=== PATIENT | female | born 1975 | race Caucasian/White ===

== ENCOUNTER 2016-12-17 11:18 | Day surgery (SDC) | payer OTHER ==
[2016-12-15 15:11] VITALS: BMI 24.5
[~2016-12-17 11:18] MED LIST: DEXAMETHASONE SOD PHOSPHATE 10 MG/ML 1 ML VIAL IV ONE; HYDROmorphone 1 MG/ML 1 ML SYRINGE IVP PRN; MIDAZOLAM 2 MG/2 ML VIAL IV PRN; ONDANSETRON 4 MG/2 ML VIAL IVP ONE; ceFAZolin 2 GM in SODIUM CHLORIDE 0.9% 100 ML IVPB ONE
[2016-12-17] MEDS ORDERED: LIDOCAINE 1% 20 ML VIAL (10MG/ML) FOR IV START INTRADERMA ONE (11:49)
[2016-12-17] MEDS: LACTATED RINGERS 1,000 ML IV SCH ×2 (11:49→14:41)
[2016-12-17] MEDS ORDERED: LIDOCAINE 1% INJ 10MG/ML (20 ML MDV) ONE (13:37)
[2016-12-17] MEDS ORDERED: MIDAZOLAM 2 MG/2 ML VIAL ONE (13:37)
[2016-12-17] MEDS ORDERED: fentaNYL (PF) 50 MCG/ML 2 ML AMP ONE (13:37)
[2016-12-17] MEDS ORDERED: PROPOFOL 10 MG/ML 20 ML VIAL IV ONE (13:37)
--- NOTE | 2016-12-17 14:09 | P.OP ---
Date of Procedure: 12/17/16 Preoperative Diagnosis: Bladder pressure rule out interstitial cystitis Postoperative Diagnosis: Interstitial cystitis Procedure(s) Performed: Cystoscopy with hydrodistention of bladder Anesthesia: MIGUEL Surgeon: John Blair Estimated Blood Loss (ml): 0 Pathology: none sent Condition: stable Disposition: PACU Indications for Procedure: The patient is a 41-year-old female with marked lower urinary tract symptoms, without infection. His symptoms are concerning for interstitial cystitis. She comes for cystoscopy and possible hydrodistention Description of Procedure: Patient brought to the operating suite and given general anesthesia. She's placed lithotomy position position with a sterile prep and drape urethra was intubated with a 22-Hungarian sheath and Foroblique lens. Urethra is normal. The bladder is markedly hyperemic and thickened consistent with nurse tissue cystitis. The bladder mucosa was otherwise unremarkable. There are no ulcers tumors or stones. Bladder filled with a good capacity of 950 mL however upon reentering the bladder there is marked submucosal petechiae throughout the floor the bladder and the trigone. There is terminal hematuria. The bladder capacity is refilled 2000 mL each time. Upon reentering the bladder there petechiae worsen. The bladder strain the cystoscope to remove the pelvic examinations unremarkable Impression a she has interstitial cystitis based on history and endoscopic findings. We will see how the hydrodistention helped her. She may need oral medication as well as intravesical instillations to help her.
[2016-12-17 14:21] VITALS: TEMP 97.2
[2016-12-17 14:24] VITALS: RESP 16
[2016-12-17] MEDS ORDERED: KETOROLAC 30 MG/ML 1 ML VIAL IVP ONE (14:47)
[2016-12-17 15:21] VITALS: BP 105/60; PULSE 74
== END 2016-12-17 15:46 | disposition home or self-care (01) ==
LOC: OR 11:18
PROVIDERS: ATTEND Urology
DX: N30.11 Interstitial cystitis (chronic) with hematuria (principal); I10 Essential (primary) hypertension; E78.00 Pure hypercholesterolemia, unspecified; K21.9 Gastro-esophageal reflux disease without esophagitis; F41.9 Anxiety disorder, unspecified; Z79.1 Long term (current) use of non-steroidal anti-inflammatories (NSAID); Z79.82 Long term (current) use of aspirin; Z79.899 Other long term (current) drug therapy; Z86.73 Personal history of transient ischemic attack (TIA), and cerebral infarction without residual deficits; Z78.0 Asymptomatic menopausal state
CPT/HCPCS: 81025; 52260; J2250; J1100; J0690; J2405; J2001; J3010; J1885; J2704

== ENCOUNTER → 2017-04-07 | Outpatient (CLI) | payer OTHER ==
--- NOTE | 2017-04-08 08:06 | XR ---
EXAMINATION TYPE: XR panorex DATE OF EXAM: 04/07/2017 COMPARISON: NONE HISTORY: Temporomandibular joint disorder TECHNIQUE: Single Panorex view is obtained FINDINGS: No acute fractures are evident. Temporal mandibular joints and normal orientation. Joint sp cirilo appears preserved. No suspicious osseous abnormality is evident. IMPRESSION: 1. Normal Panorex
== END | disposition home or self-care (01) ==
LOC: RADXRMAIN 14:24
PROVIDERS: ATTEND Dentist
DX: M26.609 Unspecified temporomandibular joint disorder, unspecified side (principal)
CPT/HCPCS: 70355

== ENCOUNTER → 2017-05-02 | Outpatient (CLI) | payer OTHER ==
[2017-05-02 11:25] LABS: Blood Urea Nitrogen 15 mg/dL (7-17); Non-African American GFR(MDRD) >60 (>60 ml/min/1.73 sqM)
== END | disposition home or self-care (01) ==
LOC: LABWHC1 10:18
PROVIDERS: ATTEND Psychiatry & Neurology Neurology
DX: R51 Headache (principal)
CPT/HCPCS: 36415; 82565; 84520

== ENCOUNTER → 2017-05-04 | Outpatient (CLI) | payer OTHER ==
--- NOTE | 2017-05-04 11:59 | MR ---
PRE AND POSTCONTRAST ENHANCED MRI OF THE BRAIN: CLINICAL HISTORY: Headache CONTRAST: 15 ML Multihance COMPARISON: 09/24/2013 Multiplanar and multispin-echo imaging of the brain was performed both before and after the administr ation of contrast. The ventricles, basal cisterns and sulci overlying the cerebral convexities are within normal limits. There is no evidence for midline shift or mass effect. Acute intracranial hemorrhage or extra-axial collection is not evident. There are no abnormal areas of increased or decreased signal intensity within the brain parenchyma. Following contrast administration, there is no evidence for pathologic enhancement or enhancing mass. The paranasal sinuses and mastoid air cells are well-aerated. Stable mucous retention cyst right maxi llary sinus. IMPRESSION: Unremarkable pre and postcontrast enhanced MRI of the brain.
== END | disposition home or self-care (01) ==
LOC: RADMRIMAIN 10:15
PROVIDERS: ATTEND Psychiatry & Neurology Neurology
DX: R51 Headache (principal)
CPT/HCPCS: 70553; A9577

== ENCOUNTER → 2017-08-06 | Outpatient (CLI) | payer OTHER ==
[2017-08-06 09:56] LABS: ALT 29 U/L (9-52); AST 32 U/L (14-36); Alkaline Phosphatase 73 U/L (38-126); Anion Gap 11 mmol/L; Blood Urea Nitrogen 9 mg/dL (7-17); Calcium 9.5 mg/dL (8.4-10.2); Carbon Dioxide 24 mmol/L (22-30); Chloride 102 mmol/L (98-107); Glucose 125 mg/dL (74-99); Non-African American GFR(MDRD) >60 (>60 ml/min/1.73 sqM); Potassium 4.4 mmol/L (3.5-5.1); Sodium 137 mmol/L (137-145); Total Bilirubin 0.7 mg/dL (0.2-1.3); Total Protein 7.5 g/dL (6.3-8.2)
[2017-08-06 10:02] LABS: Basophils % (A) 0 %; CH 30.7; CHCM 32.8; Eosinophils # (A) 0.3 k/uL (0-0.7); Eosinophils % (A) 4 %; HCT 39.5 % (34.0-46.0); HDW 2.38; Luc % (Auto) 1; Lymphocytes # (A) 1.4 k/uL (1.0-4.8); Lymphocytes % (A) 18 %; MCH 31.1 pg (25.0-35.0); MCV 94.1 fL (80.0-100.0); Mean Platelet Volume 7.9; Monocytes # (A) 0.3 k/uL (0-1.0); Monocytes % (A) 5 %; Neutrophils # (A) 5.3 k/uL (1.3-7.7); Neutrophils % (A) 72 %; RBC 4.19 m/uL (3.80-5.40); RDW 12.1 % (11.5-15.5); WBC 7.4 k/uL (3.8-10.6); WBC (Perox) 7.01
[2017-08-06 10:16] LABS: Appearance,Urine Clear (Clear); Bilirubin,Urine Negative (Negative); Glucose,Urine (UA) Negative (Negative); Ketones,Urine 1+ (Negative); Leukocyte Esterase,Urine Negative (Negative); Nitrite,Urine Negative (Negative); Protein,Urine Negative (Negative); Specific Gravity,Urine 1.007 (1.001-1.035); UA Billing (MACRO vs. MICRO) CHEM; Urobilinogen,Urine <2.0 mg/dL (<2.0)
--- NOTE | 2017-08-06 11:36 | XR ---
EXAMINATION TYPE: XR chest 2V DATE OF EXAM: 08/06/2017 COMPARISON: NONE INDICATION: Flulike symptoms cough 3-4 days TECHNIQUE: Frontal and lateral views of the chest are obtained. FINDINGS: The heart size is normal. The pulmonary vasculature is normal. The lungs are clear. IMPRESSION: 1. No acute pulmonary process.
== END | disposition home or self-care (01) ==
LOC: LABWHC1 09:13
PROVIDERS: ATTEND Family Medicine
DX: R68.89 Other general symptoms and signs (principal); I10 Essential (primary) hypertension; Z13.21 Encounter for screening for nutritional disorder
CPT/HCPCS: 36415; 71020; 80053; 81003; 82306; 84443; 85025

== ENCOUNTER → 2018-04-29 | Outpatient (CLI) | payer OTHER | END | disposition home or self-care (01) | LOC: LABWHC1 09:37 | PROVIDERS: ATTEND Family Medicine | DX: R23.2 Flushing (principal) | CPT/HCPCS: 36415; 83001 ==

== ENCOUNTER → 2018-10-27 | Outpatient (CLI) | payer OTHER ==
--- NOTE | 2018-10-30 10:19 | MM ---
Reason for exam: screening (asymptomatic). Last mammogram was performed 1 year and 1 month ago. History: Family history of breast cancer in maternal aunt. Took hormonal contraceptives for 4 years. MG Screening Mammo w CAD Bilateral CC and MLO view(s) were taken. XCCL view(s) were taken of the right breast. Prior study comparison: September 29, 2017, bilateral MG screening mammo w CAD. September 17, 2016, bilateral MG screening mammo w CAD. The breast tissue is heterogeneously dense. This may lower the sensitivity of mammography. There are benign-appearing round bilateral breast calcifications. No discrete abnormality. ASSESSMENT: Benign, BI-RAD 2 RECOMMENDATION: Routine screening mammogram of both breasts in 1 year.
== END | disposition home or self-care (01) ==
LOC: RADMAMWWP 09:10
PROVIDERS: ATTEND Family Medicine
DX: Z12.31 Encounter for screening mammogram for malignant neoplasm of breast (principal)
CPT/HCPCS: 77067

== ENCOUNTER 2019-08-29 08:55 | Observation (INO) | payer OTHER ==
[2019-08-29] MEDS ORDERED: SODIUM CHLORIDE 0.9% 500 ML 500 ML IV STA (09:11)
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
--- NOTE | 2019-08-29 10:00 | CT ---
EXAMINATION TYPE: CT brain wo con DATE OF EXAM: 08/29/2019 COMPARISON: August 20, 2013 HISTORY: Neuro Deficits CT DLP: 1068.[address] of the brain was performed. The ventricles, basal cisterns and sulci overlying the cerebral convexities demonstrate a normal appe arance. There is no evidence for intracranial hemorrhage or sulcal effacement. No mass effects are seen. Osseous calvarium is intact. If symptoms persist consider MRI as clinically warranted. IMPRESSION: 1. No acute intracranial process is seen at this time.
--- NOTE | 2019-08-29 10:02 | XR ---
EXAMINATION TYPE: XR chest 2V DATE OF EXAM: 08/29/2019 COMPARISON: 08/06/2017 HISTORY: Chest pain TECHNIQUE: Frontal and lateral views of the chest are obtained. FINDINGS: There is no focal air space opacity. No evidence for pneumothorax. No pleural effusion. The cardiac silhouette size is within normal limits. The osseous structures are grossly intact. IMPRESSION: 1. No acute cardiopulmonary process.
[2019-08-29 10:18] LABS: African American GFR (CKD) >90 (>60 ml/min/1.73 sqM); Anion Gap 16 mmol/L; Blood Urea Nitrogen 14 mg/dL (7-17); Calcium 9.3 mg/dL (8.4-10.2); Carbon Dioxide 15 mmol/L (22-30); Chloride 106 mmol/L (98-107); Glucose 97 mg/dL (74-99); Sodium 137 mmol/L (137-145)
[2019-08-29 10:22] LABS: Basophils % (A) 1 %; Eosinophils % (A) 1 %; HCT 39.9 % (34.0-46.0); HGB 13.5 gm/dL (11.4-16.0); Lymphocytes % (A) 29 %; MCH 31.2 pg (25.0-35.0); MCHC 33.7 g/dL (31.0-37.0); MCV 92.5 fL (80.0-100.0); Mean Platelet Volume 7.2; Monocytes # (A) 0.2 k/uL (0-1.0); Monocytes % (A) 6 %; Neutrophils # (A) 2.2 k/uL (1.3-7.7); Neutrophils % (A) 61 %; Platelet Count 217 k/uL (150-450); RBC 4.32 m/uL (3.80-5.40); RDW 13.3 % (11.5-15.5); WBC 3.5 k/uL (3.8-10.6)
[2019-08-29 10:24] LABS: Prothrombin Time 10.3 sec (9.0-12.0)
[2019-08-29 10:30] LABS: AST 49 U/L (14-36); Potassium 5.3 mmol/L (3.5-5.1); Total Bilirubin 1.2 mg/dL (0.2-1.3); Total Protein 8.5 g/dL (6.3-8.2)
[2019-08-29 10:31] LABS: ALT <6 U/L (9-52); Alkaline Phosphatase 77 U/L (38-126)
[2019-08-29 10:38] LABS: Partial Thromboplastin Time 21.1 sec (22.0-30.0)
[2019-08-29 10:45] LABS: Poikilocytosis (M) Present
[2019-08-29] MEDS ORDERED: ACETAMINOPHEN TAB 325 MG TAB PO STA (11:37)
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
[2019-08-29] MEDS ORDERED: INFLUENZA VACCINE (6 MOS+) 60 MCG/0.5 ML SYRINGE IM ONE (12:48)
--- NOTE | 2019-08-29 14:37 | P.CNNES ---
History of Present Illness Consult date: 08/29/19 Requesting physician: Kiran Moore Reason for Consult: TIA History of Present Illness: Patient is a 44-year-old female who came to the hospital for an acute episode of TIA versus focal seizure at around 8 AM this morning. Patient states that she was driving to work, and she was texting carefully when suddenly her right arm developed choreoathetoid movement, and has no control. She could not use the cell phone with her right hand at that time. Patient states that she remembers driving, and listing to the music, but she could not get to move her right arm what she wanted to do. She became panicked, and bending forwards and doing so, probably placed the gears in in the, and the car came to stop on the side of the road. She remembers people around, trying to knock on the window, but she could not unlock or open the door with the right arm. It felt weak, had no control. Patient states that she could hear people, but could not talk. This whole episode lasted for 2-3 minutes until she realized and used her left hand to open the lock and people opened the door. Paramedics came. Patient states when they arrived, she could not get up by herself, and she required prompt from the paramedics to get into the stretcher.patient arrived to the ER at 8:55 AM. Patient underwent computed tomography scan of the head, which revealed no acute process. EKG shows sinus tachycardia with nonspecific T-wave abnormality. Chest x-ray was normal. Labs were reviewed. Patient states that when she arrived to the hospital, she had one more event while in the ER, when she had this feeling coming on, and then her right arm developed choreoathetoid movement, not under control, weakness. It again lasted for just a few minutes, around 2-3. One of the physician in the ER came over and saw her and felt she was just hyperventilating, although patient states that it was way more than just hyperventilation. patient states that she had a similar episode 4 years ago when she was at her home with her son. Her son is nonverbal, with severe autism. Patient remembers being on one side of the room and woke up on the other side. She had similar episode of right arm clonic movement and weakness, blurred vision after she came to. She saw a neurologist, but uncertain what tests were performed. Patient did have an MRI of the brain with and without contrast on 05/04/2017 performed for "headache", which was normal. her previous B12 level was normal 751 on 04/17/2015. Total cholesterol 191, LDL 124. Patient takes aspirin 81 mg daily at home. She states that she is fully compliant and did not miss doses of aspirin lately. Review of Systems As above in detail. At present patient denies any focal symptoms. Denies any chest pain shortness of breath wheezing or cough. Constitutional: Reports weakness, Denies fever Eyes: bilateral blurred vision (With this episode.) Cardiovascular: Denies dyspnea on exertion Respiratory: Denies cough Past Medical History Past Medical History: GERD/Reflux, Hyperlipidemia, Hypertension Additional Past Medical History / Comment(s): HX. ? TIA 08/2013- HAD RT SIDE PAR ALYZIED FOR ABOUT 10 MINUTES, varicose veins, "small hernia", IBS, INTERSTITIAL CYSTITIS History of Any Multi-Drug Resistant Organisms: None Reported Past Surgical History: Cholecystectomy, Orthopedic Surgery, Uterine Ablation Additional Past Surgical History / Comment(s): HX. EGD/COLONOSCOPY 11/16/2009, novasure procedure, CYSTOSCOPY, LAPAROSCOPIC LT HIP SX Past Anesthesia/Blood Transfusion Reactions: No Reported Reaction Smoking Status: Never smoker - Past Family History Father Family Medical History: Cancer Additional Family Medical History / Comment(s): Father has prostate cancer that is in remission. Mother Family Medical History: Cancer Additional Family Medical History / Comment(s): Mother from liver cancer. She was manic depressive. Sister(s) Family Medical History: Deep Vein Thrombosis (DVT) Medications and Allergies Home Medications Medication Instructions Recorded Confirmed Type Aspirin 81 mg PO DAILY 04/06/14 08/29/19 History Metoprolol Tartrate [Lopressor] 50 mg PO DAILY 04/06/14 08/29/19 History Atorvastatin Calcium [Lipitor] 20 mg PO DAILY 12/15/16 08/29/19 History DULoxetine HCL [Cymbalta] 30 mg PO DAILY 04/11/19 08/29/19 History Omeprazole [PriLOSEC] 20 mg PO DAILY 08/29/19 08/29/19 History Tolterodine Tartrate [Detrol LA] 4 mg PO DAILY 08/29/19 08/29/19 History Allergies Allergy/AdvReac Type Severity Reaction Status Date / Time No Known Allergies Allergy Verified 04/12/19 10:55 Physical Examination - Vital Signs Vital Signs: Vital Signs Temp Pulse Resp BP Pulse Ox 08/29/19 11:36 98 16 120/75 99 08/29/19 10:10 109 H 16 117/84 100 08/29/19 08:56 98.2 F 117 H 16 121/84 100 Intake and Output 08/28/19 08/29/19 08/29/19 22:59 06:59 14:59 Other: Weight 59.874 kg On examination patient is a middle aged female, in no distress. Patient is alert and awake fully oriented. Her speech and language functions are normal. Attention and concentration fund of knowledge is adequate. On cranial nerve examination pupils are round and reactive to light, visual ruelas are full, face is symmetric and tongue protrudes to the midline. Palatal elevation and sensation normal. On muscle strength testing there is no mild right upward pronation, but no drift and the strength is normal in arms and legs distally and proximally. No ataxia. Tone and bulk of muscles normal. Results - Laboratory Findings CBC and BMP: 08/29/19 09:32 08/29/19 09:32 Abnormal Lab Findings: Abnormal Labs 08/29/19 08/29/19 08/29/19 09:32 09:32 09:32 WBC 3.5 L APTT 21.1 L Potassium 5.3 H Carbon Dioxide 15 L AST 49 H ALT <6 L Total Protein 8.5 H Assessment and Plan Assessment: * 44-year-old female presenting with two brief episodes of involuntary movement of the right arm, associated with right arm weakness and numbness, and inability to talk, all lasting for 1-2 minutes. Rule out TIA in the left parietal distribution versus focal seizure. Patient had a similar episode 4 years ago (total 3 episodes so far). * Hyperlipidemia Plan: * Patient will undergo workup for possible TIA /focal seizure. * We will check an EEG to rule out epileptiform activity, MRI of the brain to rule out mass or CVA. * We will check carotid Doppler to rule out carotid stenosis and a 2-D echo with bubble study to rule out PFO. * Patient will be continued on aspirin 325 mg daily. * Further management will be based upon above test results. * Patient is complaining of some headache, therefore we will start Fioricet as needed.
[2019-08-29] MEDS: BUTALB/APAP/CAFF 50-325-40MG TAB PO PRN ×2 (15:22→21:04)
[2019-08-29] MEDS ORDERED: ALPRAZolam 0.5 MG TAB PO PRN (16:52)
--- NOTE | 2019-08-29 17:38 | EEG ---
ELECTROENCEPHALOGRAM REPORT DATE OF SERVICE: 08/29/2019. PREAMBLE: This is a 44-year-old female who was admitted for an episode of involuntary movement of her right arm, with some mental status change and difficulty speaking. This is her third similar spell. Rule out focal seizure versus TIA. EEG FINDINGS: A STAT 21-channel awake digital EEG recording was accomplished utilizing the 10/20 international system with bipolar and referential montages. The background consists of well developed, well regulated, moderate to high amplitude activity in 10 Hz alpha. Background is posterior-dominant and reactive to eye opening and closing. Photic driving response was seen at some flash frequencies. Hyperventilation was not performed. Different stages of sleep were not seen. No focal or generalized epileptiform activity was seen. EKG rhythm leads revealed no obvious arrhythmia. IMPRESSION: This is a normal awake EEG. No focal, lateralized or epileptiform activity was seen. A normal EEG does not rule out epilepsy. If your suspicion for seizures is high, consider prolonged or sleep-deprived EEG. MMODL / IJN: [id number] / MTDChandler
--- NOTE | 2019-08-29 17:39 | MR ---
EXAMINATION TYPE: MR brain wo/w con DATE OF EXAM: 08/29/2019 COMPARISON: 05/04/2017 HISTORY: TIA/CVA versus seizure, Headache TECHNIQUE: Multiplanar, multisequence images of the brain and brainstem is performed without and with IV contras t, utilizing 6 mL intravenous Gadavist . FINDINGS: Ventricles have normal size. There is no mass effect nor midline shift. There is no sign of intracranial hemorrhage. There is no evidence of cerebral edema. There are a few tiny high signal fo ci in the white matter both parietal lobes that measure up to 4 mm. Total number is approximately 5. The brainstem is intact. There is no evidence of a cortical infarct. The sella turcica appears normal . Corpus callosum appears normal. There is 1.5 cm mucous retention cyst right maxillary sinus. Contrast images show no pathologic enhancement. There is normal contrast opacification of the venous sinuses. IMPRESSION: Mucous retention cyst right maxillary sinus unchanged. Scattered few small white matter h igh signal foci as above of uncertain significance. These appear mostly new compared to last exam. No evidence of cortical infarct.
[2019-08-29 18:14] LABS: HCT 36.9 % (34.0-46.0); HGB 12.4 gm/dL (11.4-16.0); MCH 30.7 pg (25.0-35.0); MCHC 33.5 g/dL (31.0-37.0); MCV 91.7 fL (80.0-100.0); Mean Platelet Volume 6.9; Platelet Count 249 k/uL (150-450); RBC 4.03 m/uL (3.80-5.40); RDW 13.2 % (11.5-15.5); WBC 8.5 k/uL (3.8-10.6)
--- NOTE | 2019-08-29 18:17 | US ---
EXAMINATION TYPE: US carotid duplex BILAT DATE OF EXAM: 08/29/2019 COMPARISON: NONE CLINICAL HISTORY: TIA. Right side numbness EXAM MEASUREMENTS: RIGHT: Peak Systolic Velocity (PSV) cm/sec ----- Right CCA: 106.0 ----- Right ICA: 111.0 ----- Right ECA: 125.0 ICA/CCA ratio: 1.0 RIGHT: End Diastole cm/sec ----- Right CCA: 38.1 ----- Right ICA: 55.5 ----- Right ECA: 25.8 LEFT: Peak Systolic Velocity (PSV) cm/sec ----- Left CCA: 104.0 ----- Left ICA: 103.0 ----- Left ECA: 122.0 ICA/CCA ratio: 1.0 LEFT: End Diastole cm/sec ----- Left CCA: 26.4 ----- Left ICA: 40.2 ----- Left ECA: 18.3 VERTEBRALS (direction of flow): Right Vertebral: Antegrade Left Vertebral: Antegrade Rhythm: Normal No elevated velocities or significant stenosis. No plaque. Thickened wall seen at left bulb. IMPRESSION: Minimal changes. The images and measurements suggest less than 10% stenosis in both inte rnal carotid arteries. There is antegrade flow in the vertebral arteries. Criteria for Assigning % of Stenosis / Diameter reduction (Estimation based on the indirect measurements of the internal carotid artery velocities (ICA PSV). 1. Normal (no stenosis)=ICA PSV < 125 cm/s: ratio < 2.0: ICA EDV<40 cm/s. 2. Less than 50% stenosis=ICA PSV < 125 cm/s: ratio < 2.0: ICA EDV<40 cm/s. 3. 50 to 69% stenosis=ICA PSV of 125 to 230 cm/s: ration 2.0 ? 4.0: ICA EDV 40-100 cm/s. 4. Greater than 70% stenosis to near occlusion= ICA PSV > 230 cm/s: ratio > 4.0: ICA EDV > 100 cm/s. 5. Near occlusion= ICA PSV velocities may be low or undetectable: variable ratio and ICA EDV. 6. Total occlusion=unable to detect flow.
[2019-08-29 18:21] LABS: ALT 22 U/L (9-52); AST 34 U/L (14-36); African American GFR (CKD) >90 (>60 ml/min/1.73 sqM); Albumin 4.2 g/dL (3.5-5.0); Alkaline Phosphatase 69 U/L (38-126); Anion Gap 8 mmol/L; Blood Urea Nitrogen 8 mg/dL (7-17); Calcium 9.1 mg/dL (8.4-10.2); Carbon Dioxide 25 mmol/L (22-30); Chloride 105 mmol/L (98-107); Glucose 83 mg/dL (74-99); Potassium 4.1 mmol/L (3.5-5.1); Sodium 138 mmol/L (137-145); Total Bilirubin 0.5 mg/dL (0.2-1.3)
[2019-08-29] MEDS ORDERED: traMADol 50 MG TAB PO PRN (18:30)
[2019-08-29] MEDS: FAMOTIDINE 20 MG/2 ML VIAL IV SCH (21:04)
[2019-08-29] MEDS: HEPARIN SODIUM,PORCINE 5,000 UNIT/ML 1 ML VIAL SQ SCH (21:04)
[2019-08-30 06:23] LABS: Basophils # (A) 0.1 k/uL (0-0.2); Basophils % (A) 1 %; Eosinophils # (A) 0.1 k/uL (0-0.7); Eosinophils % (A) 2 %; HCT 38.6 % (34.0-46.0); HGB 12.7 gm/dL (11.4-16.0); Lymphocytes # (A) 1.3 k/uL (1.0-4.8); Lymphocytes % (A) 30 %; MCH 30.4 pg (25.0-35.0); MCHC 32.9 g/dL (31.0-37.0); MCV 92.3 fL (80.0-100.0); Mean Platelet Volume 6.8; Monocytes # (A) 0.3 k/uL (0-1.0); Monocytes % (A) 6 %; Neutrophils # (A) 2.6 k/uL (1.3-7.7); Neutrophils % (A) 58 %; Platelet Count 254 k/uL (150-450); RBC 4.18 m/uL (3.80-5.40); RDW 13.2 % (11.5-15.5); WBC 4.4 k/uL (3.8-10.6)
[2019-08-30 06:32] LABS: African American GFR (CKD) >90 (>60 ml/min/1.73 sqM); Anion Gap 7 mmol/L; Blood Urea Nitrogen 8 mg/dL (7-17); Calcium 9.4 mg/dL (8.4-10.2); Carbon Dioxide 26 mmol/L (22-30); Chloride 104 mmol/L (98-107); Cholesterol 208 mg/dL (<200); Glucose 83 mg/dL (74-99); HDL Cholesterol 65 mg/dL (40-60); LDL Cholesterol,Calculated 130 mg/dL (0-99); Potassium 4.1 mmol/L (3.5-5.1); Sodium 137 mmol/L (137-145); Triglycerides 67 mg/dL (<150)
[2019-08-30] MEDS: HEPARIN SODIUM,PORCINE 5,000 UNIT/ML 1 ML VIAL SQ SCH (08:13)
[2019-08-30] MEDS: FAMOTIDINE 20 MG/2 ML VIAL IV SCH (08:13)
[2019-08-30 08:27] VITALS: RESP 16
[2019-08-30] MEDS ORDERED: ATORVASTATIN 20 MG TAB PO SCH (09:00)
[2019-08-30] MEDS ORDERED: OXYBUTYNIN 10 MG TAB.ER.24 PO SCH (09:00)
[2019-08-30] MEDS ORDERED: DULoxetine HCL 30 MG CAPSULE.DR PO SCH (09:00)
[2019-08-30] MEDS ORDERED: METOPROLOL TARTRATE 50 MG TAB PO SCH (09:00)
[2019-08-30] MEDS: BUTALB/APAP/CAFF 50-325-40MG TAB PO PRN (09:38)
[2019-08-30 11:39] VITALS: BP 116/68; PULSE 89; TEMP 97.8
[2019-08-30] MEDS ORDERED: levETIRAcetam 250 MG TAB PO SCH (11:45)
--- NOTE | 2019-08-30 11:51 | P.PN ---
Subjective Progress Note Date: 08/30/19 Patient denies any new neurological symptoms. She feels fine. Objective - Vital Signs Vital signs: Vital Signs Temp 97.8 F 08/30/19 11:39 Pulse 89 08/30/19 11:39 Resp 16 08/30/19 11:39 BP 116/68 08/30/19 11:39 Pulse Ox 100 08/30/19 11:39 Intake & Output 08/29/19 08/30/19 08/30/19 18:59 06:59 18:59 Intake Total 240 240 Output Total 550 Balance 240 -310 Weight 59.874 kg 60 kg Intake: Oral 240 240 Output: Urine 550 Other: Voiding Method Toilet Toilet # Voids 1 1 - Exam Normal. Nonfocal. - Labs CBC & Chem 7: 08/30/19 05:42 08/30/19 05:42 Labs: Abnormal Lab Results - Last 24 Hours (Table) 08/30/19 Range/Units 05:42 Cholesterol 208 H (<200) mg/dL LDL Cholesterol, Calc 130 H (0-99) mg/dL HDL Cholesterol 65 H (40-60) mg/dL Assessment and Plan Assessment: * 44-year-old female presenting with two brief episodes of involuntary movement of the right arm, associated with right arm weakness and numbness, and inability to talk, all lasting for 1-2 minutes. Rule out TIA in the left pa rietal distribution versus focal seizure. Patient had a similar episode 4 years ago (total 3 episodes so far). * Hyperlipidemia Plan: * EEG was normal awake pattern. * MRI of the brain negative for ischemia. Some small vessel disease. * Carotid Doppler negative for any carotid stenosis * 2-D echo with bubble study to rule out PFO has been completed. It revealed EF 55%. Bubble study showed no definitive [id number]-hlqu shunt. Left atrial size, right atrial size are normal. * Patient was taking aspirin 81 mg daily at home. She was recommended to take aspirin 81 mg, 2 tablets daily. * Patient's lipid panel showed cholesterol 208, LDL 130, HDL 35, triglycerides 67. Patient was taking Lipitor 20 mg every other day at home. Patient was recommended to start taking Lipitor 20 mg daily. * As patient had 3 stereotypical spells, suggestive of possible focal/simple partial seizure, we will empirically start her on Keppra 250 mg twice a day. Patient will follow up with Dr. Alistair Chawla, her neurologist as outpatient for possible prolonged EEG. * TSH is normal, B12 471 normal. * Patient clear for discharge.
--- NOTE | 2019-08-30 11:58 | ECHOF ---
Referral Reason:possible TIA, rule out PFO MEASUREMENTS -------- HEIGHT: 157.5 cm WEIGHT: 59.9 kg BP: IVSd: 0.8 cm (0.6 - 1.1) LVIDd: 3.7 cm (3.9 - 5.3) LVPWd: 1.2 cm (0.6 - 1.1) IVSs: 1.3 cm LVIDs: 2.5 cm LVPWs: 1.4 cm LA Diam: 2.6 cm (2.7 - 3.8) EPSS: 1.7 cm MV E Alexis: 0.54 m/s MV DecT: 254 ms MV A Alexis: 0.76 m/s MV E/A Ratio: 0.72 RAP: 5.00 mmHg RVSP: 15.92 mmHg MV EF SLOPE: 105.32 mm/s (70 - 150) MV EXCURSION: 20.65 mm (> 18.000) FINDINGS -------- Sinus rhythm. This was a technically good study. LV size, wall thickness and systolic function are normal, with an EF greater than 55%. The left mely tricular size is normal. The right ventricle is normal in size. The left atrial size is normal. The right atrial size is normal. The aortic valve is trileaflet, and appears structurally normal. No aortic stenosis or regurgitation. Mild mitral regurgitation is present. Mild tricuspid regurgitation present. Right ventricular systolic pressure is normal at < 35 mmHg. There is no evidence of pulmonary hypertension. There is no pulmonic regurgitation present. The aortic root size is normal. There is no pericardial effusion. NO CLEARCUT RIGHT TO LEFT SHUNT, TDS, SUBCOSTAL VIEW ONLY CONCLUSIONS -------- 1. Sinus rhythm. 2. This was a technically good study. 3. LV size, wall thickness and systolic function are normal, with an EF greater than 55%. 4. The left ventricular size is normal. 5. The right ventricle is normal in size. 6. The left atrial size is normal. 7. The right atrial size is normal. 8. The aortic valve is trileaflet, and appears structurally normal. No aortic stenosis or regurgitati on. 9. Mild mitral regurgitation is present. 10. Mild tricuspid regurgitation present. 11. Right ventricular systolic pressure is normal at < 35 mmHg. 12. There is no evidence of pulmonary hypertension. 13. There is no pulmonic regurgitation present. 14. The aortic root size is normal. 15. There is no pericardial effusion. 16. Bubble Study To Rule Any Shunts. GARLAND MAKER: Abigail Oneal RDCS
[2019-08-30] MEDS ORDERED: ASPIRIN 325 MG TAB PO SCH (12:00)
== END 2019-08-30 13:50 | disposition home or self-care (01) ==
LOC: EC 08:55 → 3SCARD 12:02
PROVIDERS: ADMIT Internal Medicine; ATTEND Internal Medicine
DX: R53.1 Weakness (principal); R47.81 Slurred speech; R20.2 Paresthesia of skin; R25.9 Unspecified abnormal involuntary movements; R51 Headache; F41.9 Anxiety disorder, unspecified; R06.4 Hyperventilation; D72.819 Decreased white blood cell count, unspecified; R00.0 Tachycardia, unspecified; I10 Essential (primary) hypertension; E78.5 Hyperlipidemia, unspecified; K21.9 Gastro-esophageal reflux disease without esophagitis; G62.9 Polyneuropathy, unspecified; N30.10 Interstitial cystitis (chronic) without hematuria; K58.9 Irritable bowel syndrome, unspecified; Z86.73 Personal history of transient ischemic attack (TIA), and cerebral infarction without residual deficits; Z28.21 Immunization not carried out because of patient refusal; Z79.82 Long term (current) use of aspirin; Z79.899 Other long term (current) drug therapy; Z90.49 Acquired absence of other specified parts of digestive tract; Z98.890 Other specified postprocedural states; Z82.49 Family history of ischemic heart disease and other diseases of the circulatory system; Z80.0 Family history of malignant neoplasm of digestive organs; Z80.42 Family history of malignant neoplasm of prostate
CPT/HCPCS: 96376; 96372 ×2; 96374; 96361; 99285; 36415; 95816; 93005; 93306; 97165; 92523; 80061; 80053; 80048; 84443; 82607; 84484; 85025 ×2; 85027; 85610; 85730; 71046; 93880; 70450; 70553; G0378 ×2; J1644 ×2; A9585

== ENCOUNTER → 2019-10-14 | Outpatient (CLI) | payer OTHER ==
[2019-10-14 15:40] LABS: Basophils % (A) 1 %; Eosinophils # (A) 0.1 k/uL (0-0.7); Eosinophils % (A) 1 %; HCT 38.3 % (34.0-46.0); HGB 12.7 gm/dL (11.4-16.0); Lymphocytes # (A) 1.7 k/uL (1.0-4.8); Lymphocytes % (A) 31 %; MCH 30.3 pg (25.0-35.0); MCHC 33.1 g/dL (31.0-37.0); MCV 91.6 fL (80.0-100.0); Mean Platelet Volume 8.5; Monocytes # (A) 0.2 k/uL (0-1.0); Monocytes % (A) 4 %; Neutrophils # (A) 3.4 k/uL (1.3-7.7); Neutrophils % (A) 62 %; Platelet Count 212 k/uL (150-450); RBC 4.18 m/uL (3.80-5.40); RDW 12.6 % (11.5-15.5); WBC 5.5 k/uL (3.8-10.6)
[2019-10-14 17:52] LABS: Erythrocyte Sedimentation Rate 15 mm/hr (0-20)
[2019-10-14 23:19] LABS: African American GFR (CKD) 121.3 (60.0-200.0); Albumin 4.6 g/dL (3.80-4.90); Albumin/Globulin Ratio 2.3 (1.60-3.17); Anion Gap 5.7 mmol/L (4.00-12.00); BUN/Creat Ratio 21.43 Ratio (12.00-20.00); Calcium 9.4 mg/dL (8.7-10.3); Carbon Dioxide 28.3 mmol/L (21.6-31.8); Non-African American GFR(CKD) 104.6 (60.0-200.0); Phosphorus 3.2 mg/dL (2.4-5.1); Total Bilirubin 0.5 mg/dL (0.3-1.2); Total Protein 6.6 g/dL (6.2-8.2)
== END | disposition home or self-care (01) ==
LOC: LABWHC1 15:03
PROVIDERS: ATTEND Family Medicine
DX: Z01.812 Encounter for preprocedural laboratory examination (principal); G40.89 Other seizures; G47.00 Insomnia, unspecified; E83.42 Hypomagnesemia
CPT/HCPCS: 36415; 80053; 80177; 83735; 84100; 85025; 85652

== ENCOUNTER → 2019-11-04 | Outpatient (CLI) | payer OTHER ==
--- NOTE | 2019-11-07 09:42 | MM ---
Reason for exam: screening (asymptomatic). Last mammogram was performed 1 year ago. History: Family history of breast cancer in maternal aunt. Took hormonal contraceptives for 4 years. Physical Findings: A clinical breast exam by your physician is recommended on an annual basis and results should be correlated with mammographic findings. MG Screening Mammo w CAD Bilateral CC and MLO view(s) were taken. XCCL view(s) were taken of the right breast. Prior study comparison: October 27, 2018, bilateral MG screening mammo w CAD. September 29, 2017, bilateral MG screening mammo w CAD. The breast tissue is heterogeneously dense. This may lower the sensitivity of mammography. Stable benign calcifications. There is no discrete abnormality. No significant changes when compared with prior studies. ASSESSMENT: Benign, BI-RAD 2 RECOMMENDATION: Routine screening mammogram of both breasts in 1 year.
== END | disposition home or self-care (01) ==
LOC: RADMAMWWP 09:22
PROVIDERS: ATTEND Family Medicine
DX: Z12.31 Encounter for screening mammogram for malignant neoplasm of breast (principal)
CPT/HCPCS: 77067

== ENCOUNTER → 2019-11-23 | Outpatient (CLI) | payer OTHER ==
[2019-11-23 10:11] LABS: Basophils # (A) 0.1 k/uL (0-0.2); Basophils % (A) 1 %; Eosinophils # (A) 0.1 k/uL (0-0.7); Eosinophils % (A) 1 %; HCT 41.9 % (34.0-46.0); HGB 13.1 gm/dL (11.4-16.0); Lymphocytes # (A) 1.2 k/uL (1.0-4.8); Lymphocytes % (A) 31 %; MCH 29.1 pg (25.0-35.0); MCHC 31.3 g/dL (31.0-37.0); MCV 93.2 fL (80.0-100.0); Mean Platelet Volume 8.8; Monocytes # (A) 0.3 k/uL (0-1.0); Monocytes % (A) 6 %; Neutrophils # (A) 2.4 k/uL (1.3-7.7); Neutrophils % (A) 59 %; Platelet Count 282 k/uL (150-450); RDW 13.3 % (11.5-15.5); WBC 4.1 k/uL (3.8-10.6)
== END | disposition home or self-care (01) ==
LOC: LABPAT 09:02
PROVIDERS: ATTEND Obstetrics & Gynecology
DX: Z01.812 Encounter for preprocedural laboratory examination (principal)
CPT/HCPCS: 36415; 85025

== ENCOUNTER → 2019-12-02 | Day surgery (SDC) | payer OTHER ==
[2019-11-30 10:34] VITALS: BMI 22.4
--- NOTE | 2019-12-01 16:43 | P.HPOB ---
History of Present Illness H&P Date: 12/01/19 Chief Complaint: Family planning Emma is a 44 year old female who is completed her family planning and desires permanent sterilization. She had a NovaSure approximately 13 years ago but did not have it did not have a tubal done at the same time as she was not sexually active. At this time she is now sexually active and desires a permanent form of sterilization. She has a history of multiple TIAs and blood clots and therefore hormonal treatments are out of the question. See past medical history past surgical history does include endometrial surgery as well as hip surgery, cholecystectomy and he ablation procedure. Multiple medications on her list. Risks/benefits/alternatives to a laparoscopic tubal occlusion with a prescription were reviewed with the patient in detail and all questions were answered for her prior to proceeding to the operative room. She did receive clearance from her primary care provider for this surgery. Past Medical History Past Medical History: GERD/Reflux, Hyperlipidemia, Hypertension Additional Past Medical History / Comment(s): HX. ? TIA 08/2013- HAD RT SIDE PARALYZIED FOR ABOUT 10 MINUTES, varicose veins, "small hernia", IBS, INTERSTITIAL CYSTITIS. States all of her tests have been negative pertaining to any seizure activity. Also states her is cutting back on her Keppra. History of Any Multi-Drug Resistant Organisms: None Reported Past Surgical History: Cholecystectomy, Orthopedic Surgery, Uterine Ablation Additional Past Surgical History / Comment(s): HX. EGD/COLONOSCOPY 11/16/2009, novasure procedure, CYSTOSCOPY, LAPAROSCOPIC LT HIP SX in 2007. Past Anesthesia/Blood Transfusion Reactions: No Reported Reaction Smoking Status: Never smoker - Past Family History Father Family Medical History: Cancer Additional Family Medical History / Comment(s): Father has prostate cancer that is in remission. Mother Family Medical History: Cancer Additional Family Medical History / Comment(s): Mother from liver cancer. She was manic depressive. Sister(s) Family Medical History: Deep Vein Thrombosis (DVT) Medications and Allergies Home Medications Medication Instructions Recorded Confirmed Type Atorvastatin Calcium [Lipitor] 10 mg PO DAILY 12/15/16 11/30/19 History DULoxetine HCL [Cymbalta] 60 mg PO DAILY 04/11/19 11/30/19 History Omeprazole [PriLOSEC] 20 mg PO DAILY 08/29/19 11/30/19 History Tolterodine Tartrate [Detrol LA] 4 mg PO DAILY 08/29/19 11/30/19 History Aspirin 162 mg PO DAILY #60 chewable 08/30/19 11/30/19 Rx Metoprolol Tartrate [Lopressor] 50 mg PO DAILY #30 tab 08/30/19 11/30/19 Rx levETIRAcetam [Keppra] 250 mg PO Q12HR #60 tab 08/30/19 11/30/19 Rx Gabapentin [Neurontin] 200 mg PO BID 11/30/19 11/30/19 History Zolpidem Tartrate [Ambien] 10 mg PO HS PRN 11/30/19 11/30/19 History Allergies Allergy/AdvReac Type Severity Reaction Status Date / Time No Known Allergies Allergy Verified 11/30/19 10:05 Exam Osteopathic Statement: *. No significant issues noted on an osteopathic structural exam other than those noted in the History and Physical/Consult. - OBG Physical Exam Breast: both: normal (no masses) Abdomen: bowel sounds normal, no diffuse tenderness, no bruit present, no guarding noted, no hepatomegaly, no splenomegaly, no mass Vulva: both: normal Vagina: normal moisture, no discharge Cervix: no lesion, no discharge Uterus: normal size, normal contour Adnexa: both: normal Anus/Rectum: normal perianal skin, no rectal mass, no hemorrhoids, heme negative
[~2019-12-02] MED LIST changes: +ACETAMINOPHEN IV (For NPO) 1,000 MG/100 ML VIAL ONE; +BUPIVACAINE (PF) 0.25% 30 ML VIAL SQ ONE; +GLYCOPYRROLATE 0.2 MG/ML 2 ML VIAL ONE; +HYDROcodone/APAP 5-325MG 1 EACH TAB PO ONE; +HYDROmorphone 0.5 MG/0.5 ML SYRINGE IVP PRN; -HYDROmorphone 1 MG/ML 1 ML SYRINGE IVP PRN; +KETOROLAC 30 MG/ML 1 ML VIAL ONE; +LACTATED RINGERS 1,000 ML IV SCH; +LIDOCAINE 1% 20 ML VIAL (10MG/ML) FOR IV START INTRADERMA PRN; +LIDOCAINE 1% INJ 10MG/ML (20 ML MDV) ONE; -MIDAZOLAM 2 MG/2 ML VIAL IV PRN; +MIDAZOLAM 2 MG/2 ML VIAL ONE; +NEOSTIGMINE 1 MG/ML 10 ML VIAL ONE; +PROPOFOL 10 MG/ML 20 ML VIAL IV ONE; +Pre Op ABX Message 1 EACH MISC MISCELLANE ONE; +ROCURONIUM BROMIDE 10 MG/ML 5 ML VIAL IV ONE; +SCOPOLAMINE 1.5MG/72HR PATCH TRANSDERM ONE; -ceFAZolin 2 GM in SODIUM CHLORIDE 0.9% 100 ML IVPB ONE; +ePHEDrine SULFATE/0.9% NACL/PF 50 MG/5 ML SYRINGE IV ONE; +fentaNYL (PF) 50 MCG/ML 2 ML AMP IV PRN; +fentaNYL (PF) 50 MCG/ML 2 ML AMP ONE
[2019-12-02 07:47] LABS: Cholesterol 208 mg/dL (<200); HDL Cholesterol 66 mg/dL (40-60); LDL Cholesterol,Calculated 124 mg/dL (0-99); Triglycerides 92 mg/dL (<150)
--- NOTE | 2019-12-02 08:47 | P.OP ---
Date of Procedure: 12/02/19 Preoperative Diagnosis: Family planning Postoperative Diagnosis: Same Procedure(s) Performed: Laparoscopic tubal occlusion with Filshie clips Anesthesia: MIGUEL Surgeon: Sourav Shipley Estimated Blood Loss (ml): 3 IV fluids (ml): 500 Urine output (ml): 30 Pathology: none sent Condition: stable Disposition: same day Operative Findings: Normal female pelvic anatomy Description of Procedure: Emma was taken to the operating suite where general anesthetic was found be adequate. She was prepped and draped in the normal sterile fashion and placed in the dorsal lithotomy position. Initially a speculum was used to identify the cervix and then the cervix was grasped with an Allis clamp minimally dilated and a uterine manipulator was inserted without difficulty. Other instruments were then removed and red rubber catheter was used to drain the bladder of urine. Once this was accomplished gloves were changed and attention was turned to the abdominal portion procedure were 2 mL of quarter percent Marcaine was injected periumbilically. Through this injected anesthetic a 5 mm skin incision was made and through this incision under direct visualization with an optical trocar and sleeve the camera was inserted. Once this was completed gas was left fully insufflate the abdomen and patient was placed in steep Trendelenburg position. Second port and sleeve were inserted through an 8 mm skin incision 3 cm above the pubic symphysis in the midline. Once both ports were placed uterus was elevated and fallopian tubes were identified first the right fallopian tube than the left fallopian tube had a Filshie clip applied 2-3 cm from uterine cornu. No bleeding is noted in the mesosalpinx and there is no other gross findings. Instruments were then removed and gas was allowed to expel from the abdomen. 5 deep breaths were provided during this process. Once this was fully accomplished 4-0 Vicryl was used to close incision subcuticularly and the remaining 8 mL of quarter percent Marcaine was injected around the incisions. Instrument was then removed from the vagina. Sponge, lap, needle counts were all correct 2. Patient was then taken to the recovery room in stable and satisfactory condition. Plan - Discharge Summary Discharge Rx Participant: Yes New Discharge Prescriptions: New Ibuprofen [Motrin] 600 mg PO Q6HR PRN #30 tab PRN Reason: Pain HYDROcodone/APAP 5-325MG [Munith 5-325] 1 tab PO Q4HR PRN #30 tab PRN Reason: Pain No Action Atorvastatin Calcium [Lipitor] 10 mg PO DAILY DULoxetine HCL [Cymbalta] 60 mg PO DAILY Tolterodine Tartrate [Detrol LA] 4 mg PO DAILY Omeprazole [PriLOSEC] 20 mg PO DAILY Metoprolol Tartrate [Lopressor] 50 mg PO DAILY #30 tab Aspirin 162 mg PO DAILY #60 chewable levETIRAcetam [Keppra] 250 mg PO Q12HR #60 tab Zolpidem Tartrate [Ambien] 10 mg PO HS PRN PRN Reason: Insomnia Gabapentin [Neurontin] 200 mg PO BID Discharge Medication List Atorvastatin Calcium [Lipitor] 10 mg PO DAILY 12/15/16 [History] DULoxetine HCL [Cymbalta] 60 mg PO DAILY 04/11/19 [History] Omeprazole [PriLOSEC] 20 mg PO DAILY 08/29/19 [History] Tolterodine Tartrate [Detrol LA] 4 mg PO DAILY 08/29/19 [History] Aspirin 162 mg PO DAILY #60 chewable 08/30/19 [Rx] Metoprolol Tartrate [Lopressor] 50 mg PO DAILY #30 tab 08/30/19 [Rx] levETIRAcetam [Keppra] 250 mg PO Q12HR #60 tab 08/30/19 [Rx] Gabapentin [Neurontin] 200 mg PO BID 11/30/19 [History] Zolpidem Tartrate [Ambien] 10 mg PO HS PRN 11/30/19 [History] HYDROcodone/APAP 5-325MG [Munith 5-325] 1 tab PO Q4HR PRN #30 tab 12/02/19 [Rx] Ibuprofen [Motrin] 600 mg PO Q6HR PRN #30 tab 12/02/19 [Rx] Follow up Appointment(s)/Referral(s): Sourav Shipley DO [Doctor of Osteopathic Medicine] - 2 Weeks Activity/Diet/Wound Care/Special Instructions: No heavy lifting, limit stairs and driving, and pelvic rest. If any high temperatures, heavy bleeding, or severe pain call my office Discharge Disposition: HOME SELF-CARE
[2019-12-02 08:55] VITALS: TEMP 97.1
[2019-12-02 10:19] VITALS: BP 151/81; PULSE 71; RESP 17
== END | disposition home or self-care (01) ==
LOC: OR 06:45
PROVIDERS: ATTEND Obstetrics & Gynecology
DX: Z30.2 Encounter for sterilization (principal); K21.9 Gastro-esophageal reflux disease without esophagitis; E78.5 Hyperlipidemia, unspecified; I10 Essential (primary) hypertension; I83.90 Asymptomatic varicose veins of unspecified lower extremity; F41.9 Anxiety disorder, unspecified; R00.0 Tachycardia, unspecified; K58.9 Irritable bowel syndrome, unspecified; Z86.718 Personal history of other venous thrombosis and embolism; Z98.890 Other specified postprocedural states; Z90.49 Acquired absence of other specified parts of digestive tract; Z87.440 Personal history of urinary (tract) infections; Z80.42 Family history of malignant neoplasm of prostate; Z80.0 Family history of malignant neoplasm of digestive organs; Z81.8 Family history of other mental and behavioral disorders; Z82.49 Family history of ischemic heart disease and other diseases of the circulatory system; Z79.899 Other long term (current) drug therapy; Z84.89 Family history of other specified conditions
CPT/HCPCS: 81025; 80061; 58671; J2250; J1100; J2710; J2405; J2001; J3010; J1885; J0131; J2704

== ENCOUNTER → 2020-03-30 | Outpatient (CLI) | payer OTHER ==
--- NOTE | 2020-03-30 11:06 | US ---
EXAMINATION TYPE: US transvaginal DATE OF EXAM: 03/30/2020 COMPARISON: NONE CLINICAL HISTORY: 44-year-old female R10.2 pelvic pain. TECHNIQUE: Transvaginal (TV). Pt unable to adequately fill the bladder Date of LMP: 03/04/20 Pt. States that she hasn't had a cycle since middle school and has been on control since then. She has had a cycle the last 3 month. FINDINGS: EXAM MEASUREMENTS: Uterus: 7.4 x 3.7 x 4.6cm cm Endometrial Stripe: 0.5 cm Right Ovary: 2.9 x 2.0 x 2.3cm Left Ovary: 2.4 x 1.7 x 1.6 cm 1. Uterus: wnl, anteverted 2. Endometrium: minimal fluid in endocervical canal 3. Right Ovary: simple appearing cyst measuring 1.8 x 1.6 x 1.7 cm 4. Left Ovary: wnl 5. Bilateral Adnexa: wnl 6. Posterior cul-de-sac: wnl IMPRESSION: 1. Small amount of fluid within the endocervical canal. 2. A 1.8 cm dominant follicle or functional cyst within the right ovary.
== END | disposition home or self-care (01) ==
LOC: RADUSWWP 09:30
PROVIDERS: ATTEND Obstetrics & Gynecology
DX: R18.8 Other ascites (principal); R10.2 Pelvic and perineal pain
CPT/HCPCS: 76830

== ENCOUNTER → 2020-05-15 | Outpatient (CLI) | payer OTHER ==
[2020-05-15 12:51] LABS: Basophils % (A) 1 %; Eosinophils % (A) 1 %; HCT 35.7 % (34.0-46.0); Hypochromasia Slight; Lymphocytes # (A) 1.3 k/uL (1.0-4.8); Lymphocytes % (A) 30 %; MCH 27.8 pg (25.0-35.0); MCHC 30.9 g/dL (31.0-37.0); Mean Platelet Volume 9.2; Monocytes # (A) 0.3 k/uL (0-1.0); Monocytes % (A) 8 %; Neutrophils # (A) 2.4 k/uL (1.3-7.7); Neutrophils % (A) 57 %; Platelet Count 260 k/uL (150-450); RBC 3.96 m/uL (3.80-5.40); RDW 14.2 % (11.5-15.5); WBC 4.2 k/uL (3.8-10.6)
[2020-05-15 13:04] LABS: African American GFR (CKD) >90 (>60 ml/min/1.73 sqM); Anion Gap 5 mmol/L; Blood Urea Nitrogen 13 mg/dL (7-17); Calcium 9.4 mg/dL (8.4-10.2); Carbon Dioxide 27 mmol/L (22-30); Chloride 104 mmol/L (98-107); Glucose 84 mg/dL (74-99); Non-African American GFR(CKD) >90 (>60 ml/min/1.73 sqM); Sodium 136 mmol/L (137-145)
== END | disposition home or self-care (01) ==
LOC: LABPAT 11:59
PROVIDERS: ATTEND Obstetrics & Gynecology
DX: Z01.818 Encounter for other preprocedural examination (principal)
CPT/HCPCS: 36415; 80048; 85025; 86850; 86900; 86901

== ENCOUNTER 2020-05-24 05:58 | Observation (INO) | payer OTHER ==
[2020-05-17 14:56] VITALS: BMI 24.0
--- NOTE | 2020-05-23 16:15 | P.HPOB ---
History of Present Illness H&P Date: 05/23/20 Chief Complaint: Dysfunctional uterine bleeding Emma is a 44-year-old female with dysfunctional uterine bleeding. She has had multiple episodes of intermenstrual spotting where it occurs for several days each month she also has severe cramping pains and this is severely limited her ability to function. She did have an ultrasound that showed endometrial fluid which may be contributing to it an endometrial biopsy was otherwise benign. Risks/benefits/alternatives to a robotic-assisted laparoscopic hysterectomy reviewed with the patient in detail and did include but were not limited to bleeding and infection, damage to bladder, damage to the bowel, nerve injuries, ureteral injuries. She did have a NovaSure ablation a number of years ago as well as a tubal ligation that was done in November 2019. On physical exam this is a well-developed well-nourished female whose HEENT is otherwise unremarkable. Heart regular, lungs clear, extremities without pain. Abdomen soft and nontender with positive bowel sounds noted. Assessment dysfunctional bleeding plan robotic-assisted laparoscopic hysterectomy with BS possible CARL possible BSO Past Medical History Past Medical History: GERD/Reflux, Hyperlipidemia, Hypertension, Osteoarthritis (OA) Additional Past Medical History / Comment(s): HX. ? TIA 08/2013- HAD RT SIDE PARALYSIS X10 MINUTES. Hx "Pseudo-seizure Aug 2019, saw Neurologist, had testing , no problems since." Varicose veins, "small hernia", IBS, INTERSTITIAL CYSTITIS. History of Any Multi-Drug Resistant Organisms: None Reported Past Surgical History: Cholecystectomy, Orthopedic Surgery, Tubal Ligation, Uterine Ablation Additional Past Surgical History / Comment(s): EGD/COLONOSCOP, Novasure procedure, CYSTOSCOPY, LAPAROSCOPIC LEFT HIP SURGERY. Past Anesthesia/Blood Transfusion Reactions: No Reported Reaction Additional Past Anesthesia/Blood Transfusion Reaction / Comment(s): SON PONV. Past Psychological History: Anxiety Additional Psychological History / Comment(s): Pt resides with her severely Autistic 21 yr old son and is his caregiver. Smoking Status: Never smoker Past Alcohol Use History: Rare Past Drug Use History: None Reported - Past Family History Father Family Medical History: Cancer Additional Family Medical History / Comment(s): Father had Prostate cancer that is in remission. Mother Family Medical History: Cancer Additional Family Medical History / Comment(s): Mother from liver cancer. She was Manic Depressive. Sister(s) Family Medical History: Deep Vein Thrombosis (DVT) Additional Family Medical History / Comment(s): DVT with , no problems since. Medications and Allergies Home Medications Medication Instructions Recorded Confirmed Type Atorvastatin Calcium [Lipitor] 20 mg PO DAILY 12/15/16 05/17/20 History DULoxetine HCL [Cymbalta] 60 mg PO QAM 04/11/19 05/17/20 History Omeprazole [PriLOSEC] 20 mg PO QAM 08/29/19 05/17/20 History Gabapentin [Neurontin] 300 mg PO TID 11/30/19 05/17/20 History Zolpidem Tartrate [Ambien] 10 mg PO HS 11/30/19 05/17/20 History Aspirin 81 mg PO BID 05/17/20 05/17/20 History Celecoxib [CeleBREX] 200 mg PO DAILY 05/17/20 05/17/20 History Metoprolol Tartrate [Lopressor] 50 mg PO QAM 05/17/20 05/17/20 History Allergies Allergy/AdvReac Type Severity Reaction Status Date / Time No Known Allergies Allergy Verified 05/17/20 14:43 Exam Osteopathic Statement: *. No significant issues noted on an osteopathic structural exam other than those noted in the History and Physical/Consult. - OBG Physical Exam Breast: both: normal (no masses) Abdomen: bowel sounds normal, no diffuse tenderness, no bruit present, no guarding noted, no hepatomegaly, no splenomegaly, no mass Vulva: both: normal Vagina: normal moisture, no discharge Cervix: no lesion, no discharge Uterus: normal size, normal contour Adnexa: both: normal Anus/Rectum: normal perianal skin, no rectal mass, no hemorrhoids, heme negative
[~2020-05-24 05:58] MED LIST changes: -ACETAMINOPHEN IV (For NPO) 1,000 MG/100 ML VIAL ONE; -BUPIVACAINE (PF) 0.25% 30 ML VIAL SQ ONE; -GLYCOPYRROLATE 0.2 MG/ML 2 ML VIAL ONE; -HYDROcodone/APAP 5-325MG 1 EACH TAB PO ONE; -KETOROLAC 30 MG/ML 1 ML VIAL ONE; -LACTATED RINGERS 1,000 ML IV SCH; +LIDOCAINE 1% (10MG/ML) FOR IV START INTRADERMA PRN; -LIDOCAINE 1% 20 ML VIAL (10MG/ML) FOR IV START INTRADERMA PRN; -LIDOCAINE 1% INJ 10MG/ML (20 ML MDV) ONE; -MIDAZOLAM 2 MG/2 ML VIAL ONE; -NEOSTIGMINE 1 MG/ML 10 ML VIAL ONE; -PROPOFOL 10 MG/ML 20 ML VIAL IV ONE; -Pre Op ABX Message 1 EACH MISC MISCELLANE ONE; -ROCURONIUM BROMIDE 10 MG/ML 5 ML VIAL IV ONE; -ePHEDrine SULFATE/0.9% NACL/PF 50 MG/5 ML SYRINGE IV ONE; -fentaNYL (PF) 50 MCG/ML 2 ML AMP IV PRN; -fentaNYL (PF) 50 MCG/ML 2 ML AMP ONE
[2020-05-24] MEDS: LACTATED RINGERS 1,000 ML IV SCH ×2 (06:26→14:14)
[2020-05-24] MEDS ORDERED: ONDANSETRON 4 MG/2 ML VIAL ONE (06:32)
[2020-05-24] MEDS ORDERED: ACETAMINOPHEN IV (For NPO) 1,000 MG/100 ML VIAL ONE (07:24)
[2020-05-24] MEDS ORDERED: PROPOFOL 10 MG/ML 20 ML VIAL IV ONE (07:24)
[2020-05-24] MEDS ORDERED: PHENYLEPHRINE-0.9% NACL SYG 1 MG/10 ML SYRINGE ONE (07:24)
[2020-05-24] MEDS ORDERED: LIDOCAINE 1% INJ 10MG/ML (20 ML MDV) ONE (07:24)
[2020-05-24] MEDS ORDERED: MIDAZOLAM 2 MG/2 ML VIAL ONE (07:24)
[2020-05-24] MEDS ORDERED: fentaNYL (PF) 50 MCG/ML 2 ML AMP ONE (07:24)
[2020-05-24] MEDS ORDERED: GLYCOPYRROLATE 0.2 MG/ML 2 ML VIAL ONE (07:24)
[2020-05-24] MEDS ORDERED: NEOSTIGMINE 1 MG/ML 10 ML VIAL ONE (07:24)
[2020-05-24] MEDS ORDERED: ROCURONIUM 10 MG/ML (5 ML VIAL) IV ONE (07:24)
[2020-05-24] MEDS ORDERED: BUPIVACAINE (PF) 0.25% 30 ML VIAL SQ ONE ×3 (08:04→09:03)
[2020-05-24] MEDS ORDERED: LACTATED RINGERS 1,000 ML IV ONE (08:30)
[2020-05-24] MEDS ORDERED: SIMETHICONE 80 MG CHEWABLE PO PRN (09:11)
[2020-05-24] MEDS ORDERED: ONDANSETRON 4 MG/2 ML VIAL IVP PRN (09:11)
[2020-05-24] MEDS ORDERED: HYDROcodone/APAP 5-325MG 1 EACH TAB PO PRN ×2 (09:13)
--- NOTE | 2020-05-24 09:19 | P.OP ---
Date of Procedure: 05/24/20 Preoperative Diagnosis: Dysfunctional uterine bleeding Postoperative Diagnosis: Same with incidental finding of stage II endometriosis Procedure(s) Performed: Robotic-assisted laparoscopic hysterectomy with bilateral salpingectomy Anesthesia: MIGUEL Surgeon: Sourav Shipley Grounds Maintenance Worker #1: Radha Reynoso Estimated Blood Loss (ml): 50 IV fluids (ml): 1,100 Urine output (ml): 400 Pathology: other (Uterus, cervix, fallopian tubes) Condition: stable Disposition: observation Operative Findings: Stage II endometriosis is noted with an Chris-Masters scar in the left cul-de-sac scattered clear vesicles noted throughout the abdomen no significant complaints and with the amount that was present limited treatment to just the hysterectomy was done Description of Procedure: Patient was taken to the operating suite where a general anesthetic was found be adequate. She was prepped and draped in the normal sterile fashion and placed in the dorsal lithotomy position. Initially a weighted speculum was inserted into the vagina and the anterior lip surface identified and grasped with a single-tooth tenaculum. Uterus was then sounded to 8 cm and cup size was 3 cm. Jami manipulator was then inserted without difficulty following dilation of the cervix. Sutures were placed at 3 and 9 to assist in removal. Once this was completed other incidents removed and Nathan cath was placed. Gloves were then changed and attention was turned to the abdominal portion procedure where 3 mL of quarter percent Marcaine was injected periumbilically. Through this injected anesthetic a 5 mm skin incision was made and through this incision under direct visualization with an optical trocar and sleeve the camera was inserted. Once peritoneal placed was assured gas was left fully insufflate the abdomen and patient was placed in a Trendelenburg position and a 25. 2 lateral ports were then placed through 8 mm skin incisions approximately 2 cm superior and 2 cm medial to the ASIS with these being placed under direct visualization with transillumination done during this process. Fourth port and sleeve was inserted through 1 set of the incision between the left lateral and the medial port. Camera port was exchanged for a da Edwin port and robot was brought in and docked. Once fully docked is replaced and the one arm and a Maryland grasper in 3 arm. At this point I did break scrub and go to the console. Observations pelvis were noted. Scattered endometriosis was noted with one dark endometrial implants in the posterior cul-de-sac and what was suspected to be a small endometrioma just off the left ovary. This was removed with the salpingectomy. Once pelvis and observations were completely uterus was elevated tipped to the left side and fimbriated end was grasped and elevated at this point I did go through the mesosalpinx tissues cauterizing and cutting the tissues all the way to the level of the sinuses round ligament utero-ovarian ligament was then cauterized and transected to the round ligament Makaylaley was then cauterized transected and anterior posterior leafs of the broad ligament were then developed. Vascularity on the left side of the uterus was then cauterized. Bladder flap was identified and entered with Maryland underneath and using the Maryland to undermine the tissues and the scissor to incise this bladder flap was extended across the uterus and then bluntly dissected out of the operative field. In once this was completed similar fashion right side of the uterus was developed in once completed and with excellent vascularity control and no bleed ing noted an anterior colpotomy was made. Once this was completed cup was followed around in 3 and 60 fashion counterclockwise cheating head when necessary to maintain excellent hemostasis. Cystoscopy accomplished uterus was brought into the vagina to maintain pneumoperitoneum. Once hemostasis was fully obtained incidents were exchanged for a cardia grasper and a make suture cut and using to OB lock suture the vaginal cuff was closed in a running fashion. Once all blood vessel noted the left side that was cauterized during this process. Once completed verification of hemostasis was done pelvis was then suctioned irrigated. Inspra's were then removed and robot was undocked. At this point I did return to the patient scrubbing in and doing a cystoscopy with excellent flow noted from both ureteral jets. At the same time once all incidents removed and robot was undocked Dr. Reynoso close the incisions with 4-0 Vicryl subcuticularly and the remaining 7 mL of quarter percent Marcaine was injected around these incisions. Sponge, lap, needle counts were all correct 2. Patient was then taken to the recovery room in stable and satisfactory
[2020-05-24] MEDS ORDERED: KETOROLAC 30 MG/ML 1 ML VIAL IVP ONE (09:30)
[2020-05-24] MEDS: GABAPENTIN 300 MG CAP PO SCH ×2 (14:03→21:19)
[2020-05-24] MEDS: KETOROLAC 30 MG/ML 1 ML VIAL IVP PRN ×2 (15:12→21:19)
[2020-05-24] MEDS ORDERED: ZOLPIDEM 10 MG TAB PO PRN (21:00)
[2020-05-24] MEDS ORDERED: ZOLPIDEM 5 MG TAB PO PRN (21:00)
[2020-05-24] MEDS: SENNOSIDES-DOCUSATE SODIUM 1 EACH TAB PO SCH (21:54)
[2020-05-25] MEDS: LACTATED RINGERS 1,000 ML IV SCH ×2 (03:17→03:18)
[2020-05-25] MEDS: GABAPENTIN 300 MG CAP PO SCH ×2 (03:17→07:47)
[2020-05-25] MEDS: KETOROLAC 30 MG/ML 1 ML VIAL IVP PRN (04:12)
[2020-05-25 05:17] VITALS: RESP 16
[2020-05-25 06:02] LABS: Basophils % (A) 1 %; Eosinophils % (A) 1 %; HCT 32.6 % (34.0-46.0); HGB 10.1 gm/dL (11.4-16.0); Lymphocytes # (A) 1.8 k/uL (1.0-4.8); Lymphocytes % (A) 29 %; MCH 27.9 pg (25.0-35.0); MCHC 31.1 g/dL (31.0-37.0); MCV 89.9 fL (80.0-100.0); Mean Platelet Volume 8.8; Monocytes # (A) 0.3 k/uL (0-1.0); Monocytes % (A) 6 %; Neutrophils # (A) 3.9 k/uL (1.3-7.7); Neutrophils % (A) 64 %; Platelet Count 241 k/uL (150-450); RBC 3.63 m/uL (3.80-5.40); RDW 14.7 % (11.5-15.5); WBC 6.2 k/uL (3.8-10.6)
[2020-05-25] MEDS ORDERED: PANTOPRAZOLE 40 MG TABLET PO SCH (07:30)
[2020-05-25] MEDS: SENNOSIDES-DOCUSATE SODIUM 1 EACH TAB PO SCH (07:48)
--- NOTE | 2020-05-25 08:29 | P.DS ---
Providers Date of admission: 05/25/20 01:41 Expected date of discharge: 05/25/20 Attending physician: Sourav Shipley Primary care physician: Alicja Petty Hospital Course: Emma is seen and evaluated postop day 1. She is involuting, voiding tolerating her diet. She is also passing flatus. She is stable for discharge this time. Vital signs are stable and afebrile. Heart regular, lungs clear, extremities without pain. Abdomen is soft incisions are intact and she does have bowel sounds. All questions are answered for her and discharge instructions were thoroughly reviewed. She will follow me in approximately 1 week. Prescription for [place] was for her to her pharmacy. All other questions are answered for her at this time she is stable for discharge this time. Patient Condition at Discharge: Good Plan - Discharge Summary Discharge Rx Participant: Yes New Discharge Prescriptions: New HYDROcodone/APAP 5-325MG [[place] 5-325] 1 tab PO Q4HR PRN #30 tab PRN Reason: Pain No Action Atorvastatin Calcium [Lipitor] 20 mg PO DAILY DULoxetine HCL [Cymbalta] 60 mg PO QAM Omeprazole [PriLOSEC] 20 mg PO QAM Zolpidem Tartrate [Ambien] 10 mg PO HS Gabapentin [Neurontin] 300 mg PO TID Metoprolol Tartrate [Lopressor] 50 mg PO QAM Aspirin 81 mg PO BID Celecoxib [CeleBREX] 200 mg PO DAILY Discharge Medication List Atorvastatin Calcium [Lipitor] 20 mg PO DAILY 12/15/16 [History] DULoxetine HCL [Cymbalta] 60 mg PO QAM 04/11/19 [History] Omeprazole [PriLOSEC] 20 mg PO QAM 08/29/19 [History] Gabapentin [Neurontin] 300 mg PO TID 11/30/19 [History] Zolpidem Tartrate [Ambien] 10 mg PO HS 11/30/19 [History] Aspirin 81 mg PO BID 05/17/20 [History] Celecoxib [CeleBREX] 200 mg PO DAILY 05/17/20 [History] Metoprolol Tartrate [Lopressor] 50 mg PO QAM 05/17/20 [History] HYDROcodone/APAP 5-325MG [[place] 5-325] 1 tab PO Q4HR PRN #30 tab 05/25/20 [Rx] Follow up Appointment(s)/Referral(s): Sourav Shipley DO [Doctor of Osteopathic Medicine] - 1 Week Activity/Diet/Wound Care/Special Instructions: No heavy lifting, limit stairs and driving, and pelvic rest. If any high temperatures, heavy bleeding, or severe pain call my office Discharge Disposition: HOME SELF-CARE
[2020-05-25] MEDS ORDERED: ATORVASTATIN 20 MG TAB PO SCH (09:00)
[2020-05-25] MEDS ORDERED: DULoxetine HCL 60 MG CAPSULE.DR PO SCH (09:00)
[2020-05-25] MEDS ORDERED: METOPROLOL TARTRATE 50 MG TAB PO SCH (09:00)
[2020-05-25 09:19] VITALS: BP 121/72; PULSE 82; TEMP 98.2
== END 2020-05-25 08:55 | disposition home or self-care (01) ==
LOC: OR 05:58 → 4FBP 09:17 → OR 05-25 01:40 → 4FBP 05-25 01:41
PROVIDERS: ADMIT Obstetrics & Gynecology; ATTEND Obstetrics & Gynecology
DX: N93.8 Other specified abnormal uterine and vaginal bleeding (principal); N80.3 Endometriosis of pelvic peritoneum; N83.8 Other noninflammatory disorders of ovary, fallopian tube and broad ligament; I10 Essential (primary) hypertension; E78.5 Hyperlipidemia, unspecified; M19.90 Unspecified osteoarthritis, unspecified site; K21.9 Gastro-esophageal reflux disease without esophagitis; N30.10 Interstitial cystitis (chronic) without hematuria; K58.9 Irritable bowel syndrome, unspecified; I83.90 Asymptomatic varicose veins of unspecified lower extremity; F41.9 Anxiety disorder, unspecified; Z79.82 Long term (current) use of aspirin; Z79.1 Long term (current) use of non-steroidal anti-inflammatories (NSAID); Z79.899 Other long term (current) drug therapy; Z86.73 Personal history of transient ischemic attack (TIA), and cerebral infarction without residual deficits; Z98.51 Tubal ligation status; Z90.49 Acquired absence of other specified parts of digestive tract; Z80.42 Family history of malignant neoplasm of prostate; Z80.0 Family history of malignant neoplasm of digestive organs; Z82.49 Family history of ischemic heart disease and other diseases of the circulatory system; Z81.8 Family history of other mental and behavioral disorders
CPT/HCPCS: 58571; S2900; 81025; 85025; 86850; 86900; 86901; 88307; 88309

== ENCOUNTER → 2020-11-23 | Outpatient (CLI) | payer OTHER ==
--- NOTE | 2020-11-26 10:29 | MM ---
Reason for exam: screening (asymptomatic). Last mammogram was performed 1 year and 1 month ago. History: Family history of breast cancer in maternal aunt. Took hormonal contraceptives for 4 years. Physical Findings: A clinical breast exam by your physician is recommended on an annual basis and results should be correlated with mammographic findings. MG Screening Mammo w CAD Bilateral CC and MLO view(s) were taken. Prior study comparison: November 04, 2019, bilateral MG screening mammo w CAD. October 27, 2018, bilateral MG screening mammo w CAD. The breast tissue is heterogeneously dense. This may lower the sensitivity of mammography. There is no discrete abnormality. No significant changes when compared with prior studies. ASSESSMENT: Negative, BI-RAD 1 RECOMMENDATION: Routine screening mammogram of both breasts in 1 year.
== END | disposition home or self-care (01) ==
LOC: RADMAMWWP 09:40
PROVIDERS: ATTEND Family Medicine
DX: Z12.31 Encounter for screening mammogram for malignant neoplasm of breast (principal)
CPT/HCPCS: 77067

== ENCOUNTER 2020-12-28 09:41 | Day surgery (SDC) | payer OTHER ==
[2020-12-26 11:09] VITALS: BMI 25.9
[~2020-12-28 09:41] MED LIST changes: -DEXAMETHASONE SOD PHOSPHATE 10 MG/ML 1 ML VIAL IV ONE; -HYDROmorphone 0.5 MG/0.5 ML SYRINGE IVP PRN; -ONDANSETRON 4 MG/2 ML VIAL IVP ONE; -SCOPOLAMINE 1.5MG/72HR PATCH TRANSDERM ONE
[2020-12-28 10:09] VITALS: TEMP 98.4
[2020-12-28] MEDS: LACTATED RINGERS 1,000 ML IV SCH ×2 (10:21→10:50)
[2020-12-28] MEDS ORDERED: LIDOCAINE 1% INJ 10MG/ML (20 ML MDV) ONE (10:51)
[2020-12-28] MEDS ORDERED: PROPOFOL 10 MG/ML 20 ML VIAL IV ONE (10:51)
--- NOTE | 2020-12-28 11:07 | P.PCN ---
Date of Procedure: 12/28/20 Procedure(s) Performed: BRIEF HISTORY: Patient is a 45-year-old, pleasant, white female scheduled for an upper endoscopy as a part of evaluation of progressive dysphagia for the last several months duration. He was on Prilosec for a couple of years with no help and recently was changed to Protonix 40 mg daily and continues to have dysphagia and passive regurgitation almost on a daily basis.. PROCEDURE PERFORMED: Esophagogastroduodenoscopy with biopsy. PREOPERATIVE DIAGNOSIS: Dysphagia/passive regurgitation of several months duration. IV sedation per anesthesia. PROCEDURE: After informed consent was obtained, the patient was brought into the endoscopy unit. IV sedation was administered by Anesthesia under continuous monitoring. Initially the Olympus GIF-140 video endoscope was inserted into the mouth. Esophagus intubated without any difficulty. It was gradually advanced into the stomach and duodenum and carefully examined. The bulb and the second part of the duodenum appeared normal. The scope at this time was withdrawn to the stomach, adequately insufflated with air, and upon careful examination, mucosa of the antrum had gastritis and biopsies were done from this area. The, body, cardia and the fundus appeared normal. The scope was then withdrawn into the esophagus. The GE junction was located at 39 cm from the incisors. Small sliding type hiatal hernia noted. The esophagus appeared normal. There were no erosions or ulcerations seen. No evidence of esophageal stricture. Biopsies were done from the distal esophagus and the patient tolerated the procedure well. IMPRESSION: 1. Normal-appearing esophagus with no evidence of esophagitis or esophageal stricture status post multiple biopsies to rule out eosinophilic esophagitis. 2. Small hiatal hernia 3. Mild antral gastritis. RECOMMENDATIONS: The findings of this examination were discussed with the patient is well as her family. She was advised to follow with the biopsy was. She'll be seen in office in 2 weeks..
[2020-12-28 11:43] VITALS: BP 117/74; PULSE 77; RESP 18
== END 2020-12-28 11:50 | disposition home or self-care (01) ==
LOC: ORWHC2ENDO 09:41
PROVIDERS: ATTEND Internal Medicine Gastroenterology
DX: K29.50 Unspecified chronic gastritis without bleeding (principal); K21.00 Gastro-esophageal reflux disease with esophagitis, without bleeding; K44.9 Diaphragmatic hernia without obstruction or gangrene; I10 Essential (primary) hypertension; E78.5 Hyperlipidemia, unspecified; F41.9 Anxiety disorder, unspecified; Z79.899 Other long term (current) drug therapy; Z86.73 Personal history of transient ischemic attack (TIA), and cerebral infarction without residual deficits; Z79.1 Long term (current) use of non-steroidal anti-inflammatories (NSAID); Z90.710 Acquired absence of both cervix and uterus
CPT/HCPCS: 88305; 43239; J2001; J2704

== ENCOUNTER → 2021-01-21 | Day surgery (SDC) | payer OTHER ==
[2021-01-16 13:32] VITALS: BMI 26.0
[2021-01-21 13:04] VITALS: BP 166/68; PULSE 76; RESP 16; TEMP 98.2
== END ==
LOC: ORWHC2ENDO 12:38
PROVIDERS: ATTEND Internal Medicine Gastroenterology
DX: R13.10 Dysphagia, unspecified (principal)
CPT/HCPCS: 91010

== ENCOUNTER → 2021-02-28 | Outpatient (CLI) | payer OTHER ==
--- NOTE | 2021-02-28 19:59 | MR ---
EXAMINATION TYPE: MR brain wo/w con DATE OF EXAM: 02/28/2021 COMPARISON: MRI brain 08/29/2019 HISTORY: 4 views of the right knee TECHNIQUE: Multiplanar, multisequence images of the brain and brainstem is performed without and with IV contras t, utilizing 6.5 mL intravenous Gadavist . FINDINGS: Diffusion weighted images demonstrate no evidence of a recent infarct or other diffusion ab normality. There is no extra-axial fluid collection or interval change in white matter signal abnorm ality, approximately 5 hyperintensities are again noted within the deep white matter on inversion rec overy T2-weighted sequences. The ventricular system and cisternal spaces are normal in size and appe arance. The brain volume is age appropriate. Midline structures demonstrate normal morphology. The craniocervical junction appears within normal limits. Post contrast images demonstrate no abnormal enhancement. The dural venous sinuses appear pa tent. The visualized sinuses are remarkable for probable mucus retention cyst right maxillary sinus s imilar to prior exam and the globes are intact. IMPRESSION: Stable nonspecific white matter demyelination.
== END | disposition home or self-care (01) ==
LOC: RADMRIMAIN 08:04
PROVIDERS: ATTEND Family Medicine
DX: R90.82 White matter disease, unspecified (principal)
CPT/HCPCS: 70553; A9585

== ENCOUNTER → 2021-03-04 | Outpatient (CLI) | payer OTHER | END | disposition home or self-care (01) | LOC: LABWHC1 09:51 | PROVIDERS: ATTEND Physician Assistant | DX: K13.70 Unspecified lesions of oral mucosa (principal) | CPT/HCPCS: 36415 ==

== ENCOUNTER 2021-03-29 | Day surgery (SDC) | payer OTHER | END 2021-03-29 15:08 | DX: K63.5 Polyp of colon (principal); D50.9 Iron deficiency anemia, unspecified; I10 Essential (primary) hypertension; K21.9 Gastro-esophageal reflux disease without esophagitis; E78.5 Hyperlipidemia, unspecified; Z86.73 Personal history of transient ischemic attack (TIA), and cerebral infarction without residual deficits; Z79.899 Other long term (current) drug therapy; Z79.82 Long term (current) use of aspirin | CPT/HCPCS: 45385; 82728; 83540; 83550; 85025; 83516 ×4; J2250; J2704 ==

== ENCOUNTER → 2021-04-08 | Day surgery (SDC) | payer OTHER ==
[2021-04-05 09:36] VITALS: BMI 27.3
[~2021-04-08] MED LIST changes: -LIDOCAINE 1% (10MG/ML) FOR IV START INTRADERMA PRN; +SIMETHICONE 40 MG/0.6 ML DROPS 2,000 MG/30 ML BOTTLE PO ONE
[2021-04-08 06:51] VITALS: BP 124/73; PULSE 83; RESP 18; TEMP 97.7
== END ==
LOC: ORWHC2ENDO 06:33
PROVIDERS: ATTEND Internal Medicine Gastroenterology
DX: D50.9 Iron deficiency anemia, unspecified (principal)
CPT/HCPCS: 91110

== ENCOUNTER → 2021-04-26 | Outpatient (CLI) | payer OTHER ==
[2021-04-26 15:46] LABS: Basophils # (A) 0.03 X 10*3/uL (0.00-0.10); Basophils % (A) 0.7 %; Eosinophils # (A) 0.06 X 10*3/uL (0.04-0.35); Eosinophils % (A) 1.5 %; HGB 12.8 g/dL (12.0-15.0); Lymphocytes # (A) 1.19 X 10*3/uL (0.90-5.00); Lymphocytes % (A) 29.1 %; MCH 27.8 pg (27.0-32.0); MCHC 30.5 g/dL (32.0-37.0); MCV 91.3 fL (80.0-97.0); Mean Platelet Volume 11.2 fL (9.5-12.2); Monocytes # (A) 0.41 X 10*3/uL (0.20-1.00); Neutrophils # (A) 2.39 X 10*3/uL (1.80-7.70); Neutrophils % (A) 58.5 %; Platelet Count 265 X 10*3/uL (140-440); RDW 21.2 % (11.5-14.5); WBC 4.09 X 10*3/uL (4.50-10.00)
[2021-04-26 18:57] LABS: % Iron Saturation 17.45 (12.00-45.00)
== END | disposition home or self-care (01) ==
LOC: LABWHC1 09:51
PROVIDERS: ATTEND Family Medicine
DX: D53.9 Nutritional anemia, unspecified (principal)
CPT/HCPCS: 36415; 82728; 83540; 83550; 85025

== ENCOUNTER → 2021-07-01 | Outpatient (CLI) | payer OTHER ==
[2021-07-01 11:23] LABS: Basophils # (A) 0.03 X 10*3/uL (0.00-0.10); Basophils % (A) 0.6 %; Eosinophils # (A) 0.16 X 10*3/uL (0.04-0.35); Eosinophils % (A) 3.4 %; HCT 43.1 % (37.2-46.3); HGB 14.3 g/dL (12.0-15.0); Lymphocytes # (A) 1.35 X 10*3/uL (0.90-5.00); Lymphocytes % (A) 28.7 %; MCH 30.4 pg (27.0-32.0); MCHC 33.2 g/dL (32.0-37.0); MCV 91.5 fL (80.0-97.0); Mean Platelet Volume 10.7 fL (9.5-12.2); Monocytes % (A) 8.5 %; Neutrophils # (A) 2.75 X 10*3/uL (1.80-7.70); Neutrophils % (A) 58.6 %; Platelet Count 233 X 10*3/uL (140-440); RBC 4.71 X 10*6/uL (4.10-5.20); RDW 13.5 % (11.5-14.5)
[2021-07-01 12:20] LABS: African American GFR (CKD) 102.5 (60.0-200.0); Albumin 4.3 g/dL (3.80-4.90); Albumin/Globulin Ratio 1.59 (1.60-3.17); Anion Gap 5.3 mmol/L (4.00-12.00); Calcium 9.5 mg/dL (8.7-10.3); Carbon Dioxide 30.7 mmol/L (21.6-31.8); Globulin 2.7 g/dL (1.6-3.3); Non-African American GFR(CKD) 88.4 (60.0-200.0); Potassium 4.3 mmol/L (3.5-5.5); Total Bilirubin 0.4 mg/dL (0.2-1.2)
[2021-07-01 18:10] LABS: Total Protein,CSF 23 mg/dL (12-60)
[2021-07-01 18:23] LABS: Appearance,CSF Clear; CSF Tube Number 4; CSF Tube Volume 3.5; Nucleated Cells, CSF 0 u/L (0-5)
[2021-07-01 18:24] LABS: Red Blood Cell,CSF 0 u/L (0-10)
[2021-07-04 09:47] LABS: IgG - CSF 1.1 mg/dL (0.0 - 3.4); IgG/Albumin Index (CSF) 0.49 (0.00 - 0.77)
== END | disposition home or self-care (01) ==
LOC: LABWHC1 06:56
PROVIDERS: ATTEND Nurse Practitioner Acute Care
DX: Z51.81 Encounter for therapeutic drug level monitoring (principal); H53.8 Other visual disturbances; R90.82 White matter disease, unspecified; E53.9 Vitamin B deficiency, unspecified; E55.9 Vitamin D deficiency, unspecified
CPT/HCPCS: 36415; 80053; 82040; 82042; 82306; 82607; 82784; 83916; 84157; 84207; 84439; 84443; 84481; 85025; 86038; 87801; 88108; 89050

== ENCOUNTER → 2021-08-27 | Outpatient (CLI) | payer OTHER ==
[2021-08-27 11:18] LABS: Basophils # (A) 0.03 X 10*3/uL (0.00-0.10); Basophils % (A) 0.6 %; Eosinophils # (A) 0.09 X 10*3/uL (0.04-0.35); Eosinophils % (A) 1.7 %; HCT 40.9 % (37.2-46.3); HGB 13.5 g/dL (12.0-15.0); Lymphocytes # (A) 1.45 X 10*3/uL (0.90-5.00); Lymphocytes % (A) 26.8 %; MCH 31.5 pg (27.0-32.0); MCV 95.6 fL (80.0-97.0); Mean Platelet Volume 10.8 fL (9.5-12.2); Monocytes # (A) 0.47 X 10*3/uL (0.20-1.00); Monocytes % (A) 8.7 %; Neutrophils # (A) 3.35 X 10*3/uL (1.80-7.70); Neutrophils % (A) 61.8 %; Platelet Count 248 X 10*3/uL (140-440); RBC 4.28 X 10*6/uL (4.10-5.20); RDW 12.1 % (11.5-14.5); WBC 5.41 X 10*3/uL (4.50-10.00)
[2021-08-27 13:45] LABS: % Iron Saturation 17.02 (12.00-45.00); Ferritin 35.1 ng/mL (10.0-291.0)
== END | disposition home or self-care (01) ==
LOC: LABWHC1 06:57
PROVIDERS: ATTEND Family Medicine
DX: D50.9 Iron deficiency anemia, unspecified (principal)
CPT/HCPCS: 36415; 82728; 83540; 83550; 85025

== ENCOUNTER → 2021-08-31 | Outpatient (CLI) | payer OTHER ==
[2021-08-31 13:52] LABS: Basophils % (A) 0.8 %; HCT 41.9 % (37.2-46.3); HGB 13.8 g/dL (12.0-15.0); Lymphocytes # (A) 1.28 X 10*3/uL (0.90-5.00); Lymphocytes % (A) 24.5 %; MCH 31.2 pg (27.0-32.0); MCHC 32.9 g/dL (32.0-37.0); MCV 94.6 fL (80.0-97.0); Mean Platelet Volume 10.9 fL (9.5-12.2); Monocytes # (A) 0.42 X 10*3/uL (0.20-1.00); Neutrophils # (A) 3.43 X 10*3/uL (1.80-7.70); Neutrophils % (A) 65.5 %; Platelet Count 252 X 10*3/uL (140-440); RBC 4.43 X 10*6/uL (4.10-5.20); WBC 5.23 X 10*3/uL (4.50-10.00)
[2021-08-31 13:53] LABS: Basophils # (A) 0.04 X 10*3/uL (0.00-0.10); Eosinophils # (A) 0.05 X 10*3/uL (0.04-0.35)
[2021-08-31 13:57] LABS: Creatine Kinase 86 U/L (26-186); LDL Cholesterol,Calculated 205.6 mg/dL (0.0-131.0)
== END | disposition home or self-care (01) ==
LOC: LABWHC1 08:02
PROVIDERS: ATTEND Family Medicine
DX: D53.9 Nutritional anemia, unspecified (principal); E78.2 Mixed hyperlipidemia
CPT/HCPCS: 36415; 80061; 82550; 85025

== ENCOUNTER → 2021-11-29 | Outpatient (CLI) | payer OTHER ==
[2021-11-29 11:13] LABS: % Iron Saturation 22.47 (12.00-45.00); Chol/HDL Ratio 4.33 Ratio; Ferritin 30.3 ng/mL (10.0-291.0); Iron 89 ug/dL (50-170); LDL Cholesterol,Calculated 140.4 mg/dL (0.0-131.0); Total Iron Binding Capacity 395 ug/dL (228-460)
== END | disposition home or self-care (01) ==
LOC: LABWHC1 07:21
PROVIDERS: ATTEND Physician Assistant Medical
DX: E78.5 Hyperlipidemia, unspecified (principal); D64.9 Anemia, unspecified
CPT/HCPCS: 36415; 80061; 82728; 83540; 83550

== ENCOUNTER → 2022-11-05 | Outpatient (CLI) | payer OTHER ==
--- NOTE | 2022-11-06 12:53 | MR ---
EXAMINATION TYPE: MR brain wo con DATE OF EXAM: 11/05/2022 7:57 AM COMPARISON: None. CLINICAL INDICATION:Female, 47 years old with history of G83.20 MONOPLEGIA OF UPPER LIMB AFFECTING; TECHNIQUE: Multi planar, multi sequence imaging was performed through the brain including: T1, T2, In version recovery, Diffusion weighted imaging, and gradient echo imaging. No gadolinium was given. FINDINGS: The nguyen-white junctions, ventricular system, and cisterns appear unremarkable. Few scattered foci o f high T2 signal intensity are seen within the periventricular white matter. Midline structures show no abnormality. Diffusion-weighted imaging shows no evidence of restricted diffusion. The susceptibil ity weighted images do not reveal any evidence for micro-hemorrhage. The bone marrow signal is within normal limits. Paranasal sinuses and mastoid air cells: Clear Visualized orbits: Orbital contents are intact. IMPRESSION: 1. No evidence of intracranial mass or acute/subacute infarct. 2. Minimal Nonspecific white matter changes.
== END | disposition home or self-care (01) ==
LOC: RADMRIMAIN 07:17
PROVIDERS: ATTEND Physician Assistant Medical
DX: G93.89 Other specified disorders of brain (principal); G83.20 Monoplegia of upper limb affecting unspecified side
CPT/HCPCS: 70551

== ENCOUNTER 2023-06-06 20:03 | Emergency (ER) | payer OTHER ==
[2023-06-06 20:24] VITALS: RESP 18
--- NOTE | 2023-06-06 20:58 | XR ---
EXAMINATION TYPE: XR soft tissue neck DATE OF EXAM: 06/06/2023 8:51 PM INDICATION: Patient age:Female; 47 years old; Reason for study: r/o foreign body; COMPARISON: None TECHNIQUE: The soft tissues of the neck were imaged in frontal and lateral views. FINDINGS: The prevertebral soft tissues are unremarkable. There is no evidence of mass effect or trac heal deviation. No acute osseous abnormality demonstrated. No evidence of subglottic narrowing. No radiopaque foreign body. IMPRESSION: 1. No radiopaque foreign body. 2. No significant abnormality identified within the soft tissues of the neck.
[2023-06-06] MEDS ORDERED: GLUCAGON 1 MG/ML VIAL IM STA (21:20)
--- NOTE | 2023-06-06 21:21 | ED ---
ENT HPI - General Chief complaint: ENT Stated complaint: food lodged in throat Time Seen by Provider: 06/06/23 20:39 Source: patient Mode of arrival: ambulatory Limitations: no limitations - History of Present Illness Initial comments: 47 year Old female presents to the ED with a chief complaint of foreign body. Patient states that she ate a piece of candy approximately 2 hours ago and states that it feels like it is stuck in her throat. States that she feels a foreign body in her throat and has been consistently belching since. Denies shortness of breath. Has been able to drink fluids since this. No other complaints. - Related Data Home Medications Medication Instructions Recorded Confirmed Aspirin 81 mg PO DAILY 05/17/20 04/05/21 Metoprolol Tartrate [Lopressor] 50 mg PO QAM 05/17/20 04/05/21 Pantoprazole Sodium [Protonix] 20 mg PO DAILY 12/26/20 04/05/21 Calcium Citrate/Vitamin D3 1 each PO DAILY 03/27/21 04/05/21 [Citracal + D Maximum Caplet] Iron (Unknown Dose) 1 tab PO TID 03/27/21 04/05/21 Multivitamins, Thera [Multivitamin 1 tab PO DAILY 03/27/21 04/05/21 (formulary)] QUEtiapine [SEROquel] 100 mg PO HS 03/27/21 04/05/21 valACYclovir HCL [Valtrex] 500 mg PO DAILY 03/27/21 04/05/21 Previous Rx's Medication Instructions Recorded Erythromycin Ophth Oint (1 gm) 1 applic RIGHT EYE QID #2 gram 12/21/22 [Ilotycin Ophth Oint (1 gm)] valACYclovir HCL [Valacyclovir] 1,000 mg PO TID 10 Days #30 tab 12/21/22 Allergies Allergy/AdvReac Type Severity Reaction Status Date / Time No Known Allergies Allergy Verified 12/21/22 13:14 Review of Systems ROS Statement: Those systems with pertinent positive or pertinent negative responses have been documented in the HPI. ROS Other: All systems not noted in ROS Statement are negative. Past Medical History Past Medical History: GERD/Reflux, Hyperlipidemia, Hypertension Additional Past Medical History / Comment(s): HX ? TIA 08/2013- HAD RT SIDE PARALYZIED FOR ABOUT 10 MINUTES, varicose veins, "small hiatal hernia", IBS, INTERSTITIAL CYSTITIS, Anemic History of Any Multi-Drug Resistant Organisms: None Reported Past Surgical History: Cholecystectomy, Hysterectomy, Orthopedic Surgery, Uterine Ablation Additional Past Surgical History / Comment(s): HX EGD/COLONOSCOPY 11/16/2009, novasure procedure, CYSTOSCOPY, LAPAROSCOPIC LT HIP SX, EGD 01/09/21, esophageal manometry Past Anesthesia/Blood Transfusion Reactions: No Reported Reaction, Family History of Problems w/ Anesthesia Additional Past Anesthesia/Blood Transfusion Reaction / Comment(s): SON PONV. Past Psychological History: Anxiety Smoking Status: Never smoker Past Alcohol Use History: None Reported Past Drug Use History: None Reported - Past Family History Father Family Medical History: Cancer Additional Family Medical History / Comment(s): Father had Prostate cancer that is in remission. Mother Family Medical History: Cancer Additional Family Medical History / Comment(s): Mother from liver cancer. She was Manic Depressive. Sister(s) Family Medical History: Deep Vein Thrombosis (DVT) Additional Family Medical History / Comment(s): DVT with , no problems since. General Exam Limitations: no limitations General appearance: alert, in no apparent distress Head exam: Present: atraumatic ENT exam: Present: mucous membranes moist, other (No visualized foreign body. Patent airway.) Respiratory exam: Present: normal lung sounds bilaterally Cardiovascular Exam: Present: regular rate, normal rhythm GI/Abdominal exam: Present: soft Neurological exam: Present: alert, oriented X3 Skin exam: Present: warm, dry Course Vital Signs 06/06/23 06/06/23 20:20 21:32 Temperature 98.6 F Pulse Rate 79 75 Respiratory 18 18 Rate Blood Pressure 129/80 125/76 O2 Sat by Pulse 99 100 Oximetry Medical Decision Making - Medical Decision Making Was pt. sent in by a medical professional or institution (, PA, BOOK PACKER, urgent care, hospital, or [facility]...) When possible be specific @ -No Did you speak to anyone other than the patient for history (EMS, parent, family, police, friend...)? What history was obtained from this source @ -No Did you review nursing and triage notes (agree or disagree)? Why? @ -I reviewed and agree with nursing and triage notes Were old charts reviewed (outside hosp., previous admission, EMS record, old EKG, old radiological studies, urgent care reports/EKG's, [facility] records)? Report findings @ -No old charts were reviewed Differential Diagnosis (chest pain, altered mental status, abdominal pain women, abdominal pain men, vaginal bleeding, weakness, fever, dyspnea, syncope, headache, dizziness, GI bleed, back pain, seizure, CVA, palpatations, mental health, musculoskeletal)? @ -Ingested foreign body, foreign body in respiratory tracts, aspiration pneumonia. This is not meant to be an all-inclusive list. EKG interpreted by me (3pts min.). @ -None X-rays interpreted by me (1pt min.). @ -X-rays soft tissue neck unable to visualize foreign body. CT interpreted by me (1pt min.). @ -None done U/S interpreted by me (1pt. min.). @ -None done What testing was considered but not performed or refused? (CT, X-rays, U/S, labs)? Why? @ -None What meds were considered but not given or refused? Why? @ -None Did you discuss the management of the patient with other professionals (professionals i.e. , PA, BOOK PACKER, lab, RT, psych nurse, social work lecturer, parking lot chauffeur, teacher, licensed mortgage loan officer, case management director)? Give summary @ -No Was smoking cessation discussed for >3mins.? @ -No Was critical care preformed (if so, how long)? @ -No Were there social determinants of health that impacted care today? How? (Homelessness, low income, unemployed, alcoholism, drug addiction, transportation, low edu. Level, literacy, decrease access to med. care, fpc, rehab)? @ -No Was there de-escalation of care discussed even if they declined (Discuss DNR or withdrawal of care, Hospice)? DNR status @ -No What co-morbidities impacted this encounter? (DM, HTN, Smoking, COPD, CAD, Cancer, CVA, ARF, Chemo, Hep., AIDS, mental health diagnosis, sleep apnea, morbid obesity)? @ -None Was patient admitted / discharged? Hospital course, mention meds given and route, prescriptions, significant lab abnormalities, going to OR and other pertinent info. @ -Discharge. Patient provided glucagon here. After some time, patient reports relief. Patient is tolerating secretions is having no dyspnea. Patient discharged home. Discharged home in stable condition. Discussed return precautions with patient who verbalizes agreement. Undiagnosed new problem with uncertain prognosis? @ -No Drug Therapy requiring intensive monitoring for toxicity (Heparin, Nitro, Insulin, Cardizem)? @ -No Were any procedures done? @ -No Diagnosis/symptom? @ -Foreign body sensation in throat Acute, or Chronic, or Acute on Chronic? @ -Acute Uncomplicated (without systemic symptoms) or Complicated (systemic symptoms)? @ -Uncomplicated Side effects of treatment? @ -No Exacerbation, Progression, or Severe Exacerbation? @ -No Poses a threat to life or bodily function? How? (Chest pain, [place], [place], pneumonia, PE, COPD, DKA, ARF, appy, cholecystitis, CVA, Diverticulitis, Homicidal, [place] icidal, threat to staff... and all critical care pts) @ -No Disposition Clinical Impression: Foreign body in throat Disposition: HOME SELF-CARE Condition: Good Additional Instructions: Please return to the Emergency Department if symptoms worsen or any other concerns. Is patient prescribed a controlled substance at d/c from ED?: No Referrals: Jose Pereira MD [Primary Care Provider] - 1-2 days Time of Disposition: 22:00
[2023-06-06 22:57] VITALS: BP 119/72; PULSE 78; TEMP 97.8
== END 2023-06-06 22:59 | disposition home or self-care (01) ==
LOC: EC 20:03
DX: T17.228A Food in pharynx causing other injury, initial encounter (principal); I10 Essential (primary) hypertension; K21.9 Gastro-esophageal reflux disease without esophagitis; Z79.82 Long term (current) use of aspirin; Z79.899 Other long term (current) drug therapy; Z90.49 Acquired absence of other specified parts of digestive tract
CPT/HCPCS: 70360; 99283; 96372; J1610

== ENCOUNTER → 2023-06-12 | Day surgery (SDC) | payer OTHER ==
[2023-06-10 10:37] VITALS: BMI 23.8
[~2023-06-12] MED LIST changes: +PROPOFOL 10 MG/ML 20 ML VIAL IV ONE; -SIMETHICONE 40 MG/0.6 ML DROPS 2,000 MG/30 ML BOTTLE PO ONE
[2023-06-12 13:55] VITALS: TEMP 97.1
[2023-06-12] MEDS: LACTATED RINGERS 1,000 ML IV SCH ×2 (14:01→14:58)
--- NOTE | 2023-06-12 15:11 | P.PCN ---
Date of Procedure: 06/12/23 Procedure(s) Performed: BRIEF HISTORY: Patient is a 48-year-old, pleasant, white female scheduled for an upper endoscopy as a part of evaluation of from. PROCEDURE PERFORMED: Esophagogastroduodenoscopy with biopsy. PREOPERATIVE DIAGNOSIS: Epigastric Pain/GERD/excessive belching for few months duration. IV sedation per anesthesia. PROCEDURE: After informed consent was obtained, the patient was brought into the endoscopy unit. IV sedation was administered by Anesthesia under continuous monitoring. Initially the Olympus GIF-140 video endoscope was inserted into the mouth. Esophagus intubated without any difficulty. It was gradually advanced into the stomach and duodenum and carefully examined. The bulb and the second part of the duodenum appeared normal. The scope at this time was withdrawn to the stomach, adequately insufflated with air, and upon careful examination, mucosa of the antrum had gastritis and biopsies were done from this area. Mucosa of the, body, cardia and the fundus appeared normal. The scope was then withdrawn into the esophagus. The GE junction was located at 39 cm from the incisors. The esophagus appeared normal. There were no erosions or ulcerations seen, biopsies were done from the distal esophagus and the patient tolerated the procedure well. IMPRESSION: 1. Mild antral gastritis. 2. No evidence of esophagitis or peptic ulcer disease. RECOMMENDATIONS: The findings of this examination were discussed with the patient as well as her family. She was advised to increase the Protonix to 40 mg twice daily and follow antrum reflux measures. She'll be seen in office in 3-4 weeks.
[2023-06-12 15:29] VITALS: BP 115/60; PULSE 76; RESP 14
== END ==
LOC: ORWHC2ENDO 12:21
PROVIDERS: ATTEND Internal Medicine Gastroenterology
DX: K29.50 Unspecified chronic gastritis without bleeding (principal); K21.9 Gastro-esophageal reflux disease without esophagitis; I10 Essential (primary) hypertension; E78.5 Hyperlipidemia, unspecified; K58.9 Irritable bowel syndrome, unspecified; Z79.899 Other long term (current) drug therapy
CPT/HCPCS: 88305; 43239; J2704

== ENCOUNTER → 2023-07-08 | Outpatient (CLI) | payer OTHER ==
--- NOTE | 2023-07-08 21:56 | FL ---
EXAMINATION TYPE: FL barium swallow DATE OF EXAM: 07/08/2023 COMPARISON: None HISTORY: Food getting stuck worsening TECHNIQUE: A single contrast esophagram study is performed FINDINGS: Esophagus dilates to normal caliber and has normal contour to the gastroesophageal junction. Gastroes ophageal junction opens to normal caliber. No intraluminal or extramural defects are evident. A large amount of gastric reflux is evident extending to the thoracic inlet during this exam. Gastroesophageal junction opens to normal caliber. A minimal sliding-type hiatal hernia is present. T here is complete stripping esophageal bolus in the horizontal drinking position. IMPRESSION: 1. No focal stenosis of the esophagus. 2. Gastroesophageal reflux filling the esophagus to the thoracic inlet. 3. Small soft reducing sliding type hiatal hernia.
== END | disposition home or self-care (01) ==
LOC: RADUSWWP 09:51
PROVIDERS: ATTEND Internal Medicine Gastroenterology
DX: K21.9 Gastro-esophageal reflux disease without esophagitis (principal); K44.9 Diaphragmatic hernia without obstruction or gangrene; R13.10 Dysphagia, unspecified
CPT/HCPCS: 74220

== ENCOUNTER → 2023-07-10 | Outpatient (CLI) | payer OTHER ==
--- NOTE | 2023-07-10 10:44 | US ---
EXAMINATION TYPE: US abdomen complete DATE OF EXAM: 07/10/2023 COMPARISON: NONE CLINICAL INDICATION: Female, 47 years old with history of R14.2 ERUCTATION; regurgitation gb removed bloating TECHNIQUE: Multiple sonographic images of the abdomen are obtained. FINDINGS: EXAM MEASUREMENTS: Liver Length: 15.9 cm Gallbladder Wall: Surgically absent CBD: .4 cm Spleen: 9.2 cm Right Kidney: 11.8 x 3.5 x 4.3 cm Left Kidney: 10.6 x 4.6 cm TECHNOLOGY TEACHER NOTES: Pancreas: wnl Liver: wnl Gallbladder: wnl Evidence for sonographic Ward's sign: CBD: wnl Spleen: wnl Right Kidney: wnl Left Kidney: wnl Upper IVC: wnl Abd Aorta: wnl The liver is homogenous. The intrahepatic portion of the IVC and proximal abdominal aorta are within normal limits. There is no evidence of cholelithiasis. Common bile duct is unremarkable. The visu alized portions of the pancreas are homogenous. The spleen is unremarkable. Kidneys are symmetric a nd free of hydronephrosis. No renal lesions are seen. IMPRESSION: Unremarkable abdominal ultrasound.
== END | disposition home or self-care (01) ==
LOC: RADUSWWP 10:11
PROVIDERS: ATTEND Family Medicine
DX: R14.2 Eructation (principal); Z90.49 Acquired absence of other specified parts of digestive tract
CPT/HCPCS: 76700

== ENCOUNTER → 2023-08-05 | Outpatient (CLI) | payer OTHER ==
--- NOTE | 2023-08-05 12:37 | NM ---
EXAMINATION TYPE: NM gastric emptying static DATE OF EXAM: 08/05/2023 COMPARISON: NONE CLINICAL INDICATION: Female, 47 years old with history of R14.2 Eructation; Following administration of 1.89 mCi Tc 99m Sulfur Colloid with 4 OUNCES EGGS, 2 PIECES OF TOAST WITH BUTTER, & 12 OUNCES OF WATER, projection images of the abdomen were obtained 10 minutes post ingesti on. Patient Emptying Values 1 Hour 17 % 2 Hours 24 % 3 Hours 69 % 4 Hours 84 % T1/2 of 136 minutes Gastroesophagel reflux: None IMPRESSION: Gastric emptying: There is slightly delayed gastric emptying noted which could reflect borderline to mild gastroparesis. Gastroesophageal reflux: None Gastric emptying normal percentage values: 30 minutes: <70% of retention (> 30% emptying) suggests abnormally fast emptying. 60 minutes: <90% retention (>10% emptying) is normal; less than 30% retention (>70% emptying) suggest s abnormally rapid emptying. 90 minutes: <65% retention (> 35% emptying) is normal. 120 minutes: <60% retention (> 40% emptying) is normal. 180 minutes: <30% retention (> 70% emptying) is normal. Gastric emptying T-1/2: Solid: The normal range is 60-105 minutes Liquid only: Normal range is 10-45 minutes. Liquid only-children: At 60 minutes, normal range is 44-58 % . Liquid only-infants: At 60 minutes, normal range is 32-64 %. Additional references: Gastric Emptying Scintigraphy [email or web address]://[email or web address]
== END | disposition home or self-care (01) ==
LOC: RADNMMAIN 07:01
PROVIDERS: ATTEND Family Medicine
DX: R14.2 Eructation (principal)
CPT/HCPCS: 78264; A9541

== ENCOUNTER → 2023-12-10 | Outpatient (CLI) | payer BC ==
--- NOTE | 2023-12-11 19:21 | MM ---
Reason for Exam: Screening (asymptomatic). Last screening mammogram was performed 12 month(s) ago. Patient History: Menarche at age 12. First Full-Term at age 25. Hysterectomy at age 44. Postmenopausal. Patient used Hormonal Contraceptives for 4 years. Maternal aunt had breast cancer. Risk Values: Clover 5 year model risk: 1.0%. NCI Lifetime model risk: 10.0%. Prior Study Comparison: 11/23/2020 Bilateral Screening Mammogram, [facility]. 11/29/2021 Bilateral Screening Mammogram, [facility]. 12/03/2022 Bilateral MG screening mammo w CAD, [facility]. Tissue Density: The breast tissue is heterogeneously dense. This may lower the sensitivity of mammography. Findings: Analyzed By CAD. There is no suspicious group of microcalcifications or new suspicious mass in either breast. Overall Assessment: Negative, BI-RAD 1 Management: Screening Mammogram of both breasts in 1 year. . Patient should continue monthly self-breast exams. A clinical breast exam by your physician is recommended on an annual basis. This exam should not preclude additional follow-up of suspicious palpable abnormalities. Note on Clover scores and lifetime risk: 1. A Clover score greater than 3% is considered moderate risk. If this is the case, consider specialist referral to assess eligibility for a risk reducing agent. 2. If overall lifetime risk for the development of breast cancer is 20% or higher, the patient may qualify for future screening with alternating mammogram and breast MRI. Electronically signed and approved by: Jose Messina M.D. Radiologist
== END | disposition home or self-care (01) ==
LOC: RADMAMWWP 08:42
PROVIDERS: ATTEND Family Medicine
DX: Z12.31 Encounter for screening mammogram for malignant neoplasm of breast (principal); Z80.3 Family history of malignant neoplasm of breast; Z78.0 Asymptomatic menopausal state
CPT/HCPCS: 77063; 77067

== ENCOUNTER → 2024-04-14 | Outpatient (CLI) | payer BC | END | disposition home or self-care (01) | LOC: LABWHC1 15:05 | PROVIDERS: ATTEND Nurse Practitioner Family | DX: F84.0 Autistic disorder (principal); Z79.899 Other long term (current) drug therapy ==

== ENCOUNTER → 2025-02-14 | Outpatient (CLI) | payer BC ==
--- NOTE | 2025-02-14 13:49 | MM ---
Reason for Exam: Screening (asymptomatic). Last mammogram was performed 1 year(s) and 2 month(s) ago. Patient History: Menarche at age 12. First Full-Term at age 25. Hysterectomy at age 44. Postmenopausal. Patient used Hormonal Contraceptives for 4 years. Maternal aunt had breast cancer. Risk Values: Clover 5 year model risk: 1.1%. NCI Lifetime model risk: 9.9%. Prior Study Comparison: 07/28/2014 Bilateral Screening Mammogram, [facility]. 08/02/2015 Bilateral Screening Mammogram, [facility]. 09/17/2016 Bilateral Screening Mammogram, [facility]. 09/29/2017 Bilateral Screening Mammogram, [facility]. 10/27/2018 Bilateral Screening Mammogram, [facility]. 11/04/2019 Bilateral Screening Mammogram, [facility]. 11/23/2020 Bilateral Screening Mammogram, [facility]. 11/29/2021 Bilateral Screening Mammogram, [facility]. 12/03/2022 Bilateral MG screening mammo w CAD, [facility]. 12/10/2023 Bilateral MG 3D screening mammo w/cad, [facility]. Tissue Density: The breasts are heterogeneously dense, which may obscure small masses. Findings: Single benign-appearing round calcification in the right breast is redemonstrated. Benign-appearing right axillary lymph nodes are redemonstrated. There is no suspicious new group of microcalcifications or new suspicious mass in either breast. Overall Assessment: Benign, BI-RAD 2 Management: Screening Mammogram of both breasts in 1 year. . Patient should continue monthly self-breast exams. A clinical breast exam by your physician is recommended on an annual basis. This exam should not preclude additional follow-up of suspicious palpable abnormalities. Note on Clover scores and lifetime risk: 1. A Clover score greater than 3% is considered moderate risk. If this is the case, consider specialist referral to assess eligibility for a risk reducing agent. 2. If overall lifetime risk for the development of breast cancer is 20% or higher, the patient may qualify for future screening with alternating mammogram and breast MRI. [facility], , 02/14/2025 1:46 PM. Electronically signed and approved by: Trung Naik M.D.
== END | disposition home or self-care (01) ==
LOC: RADMAMWWP 08:47
PROVIDERS: ATTEND Family Medicine
DX: Z12.31 Encounter for screening mammogram for malignant neoplasm of breast (principal); R92.323 Mammographic fibroglandular density, bilateral breasts; Z78.0 Asymptomatic menopausal state; Z92.0 Personal history of contraception; Z80.3 Family history of malignant neoplasm of breast
CPT/HCPCS: 77063; 77067

== ENCOUNTER → 2025-03-08 | Outpatient (CLI) | payer BC ==
--- NOTE | 2025-03-09 08:31 | MR ---
EXAMINATION TYPE: MR brain/cspine wo DATE OF EXAM: 03/08/2025 COMPARISON: CT brain August 29, 2019. HISTORY: Muscle weakness TECHNIQUE: Multiplanar, multisequence imaging of the brain and brainstem and cervical spine are all p erformed without IV contrast. FINDINGS: BRAIN: Diffusion weighted images demonstrate no evidence of a recent infarct or other diffusion abnormality. There is no extraaxial fluid collection . The ventricular system and cisternal spaces are normal in size and appearance. The brain volume is age appropriate. Occasional tiny focus of T2 hyperintensity scattered throughout the white matter bilaterally. Less than 5 distinct lesions are seen. No suspici ous abnormal intraparenchymal blood products on the T2 star weighted images. Midline structures redemonstrate normal morphology. The craniocervical junction appears within anna l limits. Normal vascular flow voids are present. The visualized sinuses are clear and the globes are intact. IMPRESSION: No MRI evidence for recent infarct. Minimal nonspecific white matter changes otherwise un remarkable study. MRI CERVICAL SPINE: FINDINGS: Sagittal images of the cervical spine show the craniocervical junction to appear within nor mal limits. The cervical and upper thoracic spinal cord is normal in caliber and signal.. There is s light lateral convex scoliotic curvature centered in the upper to mid thoracic spine. The vertebral body heights are normal. Mild disc space narrowing at C5-C6 level is seen. The bone marrow signal i ntensity is within normal limits. Axial images show C2-C3 through C4-C5 levels to appear within normal limits. Axial images at C5-C6 level show small foraminal disc protrusions bilaterally causing mild right grea ter than left bilateral neural foraminal narrowing Axial images at C6-C7 level show lobulated foraminal disc protrusions causing [id number] bilate ral neural foraminal narrowing. Axial images at C7-T1 level appear within normal limits. IMPRESSION: Mild multilevel degenerative change in the mid to lower cervical spine is seen as detaile d above. [facility], , 03/09/2025 8:29 AM
== END | disposition home or self-care (01) ==
LOC: RADMRIMAIN 08:26
PROVIDERS: ATTEND Family Medicine
DX: M62.81 Muscle weakness (generalized) (principal); M47.812 Spondylosis without myelopathy or radiculopathy, cervical region; M50.322 Other cervical disc degeneration at C5-C6 level; M99.71 Connective tissue and disc stenosis of intervertebral foramina of cervical region; R90.82 White matter disease, unspecified
CPT/HCPCS: 70551; 72141